=== PATIENT | female | born 1965 | race Hispanic/Latino ===

== ENCOUNTER 2016-11-06 23:24 | Observation (INO) | payer OTHER ==
[2016-11-06 23:31] VITALS: BP 138/88; RESP 18; TEMP 98
[2016-11-06] MEDS ORDERED: Sodium Chloride 0.9% 1,000 ML IV STA (23:38)
[2016-11-06] MEDS ORDERED: Multivitamin (MVI) 10 ML, Folic Acid 1 MG, Thiamine 100 MG in Dextrose 5%/0.45% NS 1,00... IV ONE (23:55)
[2016-11-07 00:46] LABS: BASO # 0.1 K/uL (0.0-0.2); BASO % 0.6 % (0.0-2.0); EOS % 0.5 % (0.0-4.0); HEMATOCRIT 37.3 % (34.0-47.0); LYMPH # 1.8 K/uL (1.0-4.3); MEAN CELL VOLUME 97.4 fl (81.0-99.0); MEAN CORPUSCULAR HEMOGLOBIN 31.7 pg (27.0-31.0); MEAN CORPUSCULAR HGB CONC 32.6 g/dL (33.0-37.0); MEAN PLATELET VOLUME 9.9 fl (7.2-11.7); MONO # 0.6 K/uL (0.0-0.8); MONO % 6.6 % (0.0-10.0); NEUT # 6.2 K/uL (1.8-7.0); NEUT % 71.3 % (50.0-75.0); RED CELL DISTRIBUTION WIDTH 14.1 % (11.5-14.5); WHITE BLOOD COUNT 8.7 K/uL (4.8-10.8)
[2016-11-07 01:04] LABS: ALB/GLOB RATIO 0.7 (1.0-2.1); ALKALINE PHOSPHATASE 98 U/L (38-126); ALT/SGPT 46 U/L (9-52); AST/SGOT 90 U/L (14-36); BILIRUBIN,TOTAL 0.8 mg/dl (0.2-1.3); BLOOD UREA NITROGEN 6 mg/dl (7-17); CALCIUM 8.7 mg/dL (8.4-10.2); CARBON DIOXIDE 23 mmol/L (22-30); CHLORIDE 107 mmol/L (98-107); GFR AFRICAN-AMERICAN > 60; GLUCOSE,RANDOM 147 mg/dL (65-105); POTASSIUM 3.9 MMOL/L (3.6-5.0); SODIUM 150 mmol/l (132-148)
[2016-11-07 01:22] LABS: ALCOHOL SERUM 319 mg/dl (0-10)
--- NOTE | 2016-11-07 02:45 | ED PDOC ---
HPI: Psych/Substance Abuse Time Seen by Provider: 11/06/16 23:27 Chief Complaint (Nursing): Anxiety Chief Complaint (Provider): intoxication, anxiety History Per: Patient History/Exam Limitations: no limitations Onset/Duration Of Symptoms: Hrs Current Symptoms Are (Timing): Still Present Additional Complaint(s): 51yo female with PMHx including alcohol abuse presents to the ED for evaluation of intoxication and anxiety. Patient states her is currently hospitalized at this facility in the ICU and is severely ill and has used alcohol due to extreme anxiety and stress because of 's condition. Patient was walking to this hospital in order to visit her when she was picked up by local EMS due to intoxicated state. Denies medical complaints except extreme anxiety and preoccupation with 's condition. No fever, cough, SOB, chest pain, SI, HI. Declines crisis services and denies drug use. 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 Admits to daily alcohol use. Past Medical History Reviewed: Historical Data, Nursing Documentation, Vital Signs Vital Signs: Last Vital Signs Temp 98.0 F 11/06/16 23:28 Pulse 150 H 11/06/16 23:28 Resp 18 11/06/16 23:28 BP 138/88 11/06/16 23:28 Pulse Ox 98 11/06/16 23:28 - Medical History Other PMH: alcohol abuse - Surgical History Surgical History: No Surg Hx - Family History Family History: States: No Known Family Hx - Social History Current smoker - smoking cessation education provided: No Alcohol: Other (daily) Drugs: Other (former heroin addict ) - Home Medications Home Medications: Ambulatory Orders Medication Instructions Recorded Naproxen 1 tab PO BID PRN #14 tab 02/29/16 oxyCODONE/Acetaminophen [Percocet 1 ea PO Q6 PRN #15 tab 02/29/16 5/325 mg Tab] - Allergies Allergies/Adverse Reactions: Allergies Allergy/AdvReac Type Severity Reaction Status Date / Time No Known Allergies Allergy Verified 11/06/16 23:28 Review of Systems ROS Statement: Except As Marked, All Systems Reviewed And Found Negative Constitutional: Negative for: Fever Cardiovascular: Negative for: Chest Pain Respiratory: Negative for: Cough, Shortness of Breath Psych: Positive for: Anxiety, Other (no HI ). Negative for: Suicidal ideation Physical Exam - Reviewed Nursing Documentation Reviewed: Yes Vital Signs Reviewed: Yes - Physical Exam Appears: Positive for: Well, No Acute Distress Head Exam: Positive for: ATRAUMATIC, NORMAL INSPECTION, NORMOCEPHALIC Skin: Positive for: Warm, Dry, Rash (petechial rash to BLE ) Eye Exam: Positive for: Normal appearance, EOMI, PERRL ENT: Positive for: Normal ENT Inspection Neck: Positive for: Normal, Painless ROM, Supple Cardiovascular/Chest: Positive for: Tachycardia. Negative for: Edema, Murmur Respiratory: Positive for: Normal Breath Sounds. Negative for: Wheezing, Respiratory Distress Gastrointestinal/Abdominal: Positive for: Normal Exam, Bowel Sounds, Soft. Negative for: Tenderness Back: Positive for: Normal Inspection. Negative for: L CVA Tenderness, R CVA Tenderness Extremity: Positive for: Normal ROM, Other (bruises noticed to arms and lower extremities b/l ). Negative for: Tenderness, Deformity Neurologic/Psych: Positive for: Alert, Oriented, Mood/Affect (anxious, tearful ) , Gait (unsteady ) - Laboratory Results Result Diagrams: 11/07/16 00:20 11/07/16 00:20 - ECG O2 Sat by Pulse Oximetry: 98 Pulse Ox Interpretation: Normal (RA) Medical Decision Making Medical Decision Makin: Impression: 51yo female w/ anxiety in setting of alcohol use and stress Plan: Labs EKG Ativan 2mg IVP, banana bag ED obs reassess 0600: Patient AAOx3 ambulating with steady gait and clear speech and stable for d/c. Dx: alcohol intoxication, stress and adjustment reaction stable Scribe Attestation: Documented by Joaquín Sanchez acting as a scribe for Jose Bryant MD. Provider Scribe Attestation: All medical record entries made by the Scribe were at my direction and personally dictated by me. I have reviewed the chart and agree that the record accurately reflects my personal performance of the history, physical exam, medical decision making, and the department course for this patient. I have also personally directed, reviewed, and agree with the discharge instructions and disposition. ED OBSERVATION Date of observation admission: 11/07/16 Time of observation admission: 02:35 - Observation admission statement Patient is being placed in observation because:: intoxication - Goals of Observation Goals of observation are:: pending clinical sobriety Disposition - Clinical Impression Clinical Impression: Stress and adjustment reaction, Alcohol intoxication - Patient ED Disposition Is Patient to be Admitted: No - Disposition Referrals: [facility] [Outside] [facility] [Outside] Disposition: Routine/Home Disposition Time: 02:35 Condition: STABLE Instructions: Stress (ED), Alcohol Use Disorder (ED)
[2016-11-07 06:09] VITALS: PULSE 105; O2SAT 94
--- NOTE | 2016-11-07 08:00 | CARD ---
APPROVED REPORT EKG Measurement Heart [id number] <Conclusion> Sinus tachycardia Left axis deviation Possible Anterior infarct, age undetermined Abnormal ECG
== END 2016-11-07 05:43 | disposition home or self-care (01) ==
LOC: H.ER 23:24 → H.EROBSV 11-07 02:35
PROVIDERS: ADMIT Emergency Medicine; ATTEND Emergency Medicine
DX: F10.129 Alcohol abuse with intoxication, unspecified (principal); Y90.8 Blood alcohol level of 240 mg/100 ml or more; F41.9 Anxiety disorder, unspecified; F43.20 Adjustment disorder, unspecified

== ENCOUNTER 2016-12-01 16:57 | Inpatient (IN) | payer OTHER ==
[2016-12-01] MEDS ORDERED: Sodium Chloride 0.9% 1,000 ML IV STA (18:35)
--- NOTE | 2016-12-01 19:01 | ED PDOC ---
Lower Extremity Pain/Injury Time Seen by Provider: 12/01/16 17:00 Chief Complaint (Nursing): Lower Extremity Problem/Injury Chief Complaint (Provider): Lower Extremity Problem/Injury History Per: Patient History/Exam Limitations: no limitations Onset/Duration Of Symptoms: Days Current Symptoms Are (Timing): Still Present Severity: Moderate Additional Complaint(s): Patient is a 51 year old female referred to ED by Mikey CHESTER for lower extremity swelling for a few days. Patient admits that she was alcoholic for 30 years, recently stopped drinking 2 weeks ago but has noticed this swelling that began in her feet move up to her knees. she also feels tremulous. Denies fever, vomiting, chest pain, palpations or SOB. Past Medical History Reviewed: Historical Data, Nursing Documentation, Vital Signs Vital Signs: Last Vital Signs Temp 98.4 F 12/01/16 17:30 Pulse 88 12/01/16 17:30 Resp 18 12/01/16 17:30 BP 133/92 H 12/01/16 17:30 Pulse Ox 99 12/01/16 17:30 - Medical History PMH: No Chronic Diseases - Surgical History Surgical History: No Surg Hx - Family History Family History: States: Unknown Family Hx - Social History Current smoker - smoking cessation education provided: No Alcohol: Other (quit) Drugs: Denies - Allergies Allergies/Adverse Reactions: Allergies Allergy/AdvReac Type Severity Reaction Status Date / Time No Known Allergies Allergy Verified 11/06/16 23:28 Review of Systems ROS Statement: Except As Marked, All Systems Reviewed And Found Negative Constitutional: Negative for: Fever, Chills Cardiovascular: Positive for: Edema. Negative for: Chest Pain, Palpitations, Light Headedness Respiratory: Negative for: Cough, Shortness of Breath Gastrointestinal: Negative for: Nausea, Vomiting Neurological: Positive for: Other (feels shaky). Negative for: Altered Mental Status, Headache, Dizziness Physical Exam - Reviewed Nursing Documentation Reviewed: Yes Vital Signs Reviewed: Yes - Physical Exam Appears: Positive for: Non-toxic, No Acute Distress Skin: Positive for: Normal Color, Warm Eye Exam: Positive for: EOMI, PERRL, Scleral icterus (bilateral) Neck: Positive for: Normal, Painless ROM Cardiovascular/Chest: Positive for: Regular Rate, Rhythm. Negative for: Murmur Respiratory: Positive for: Normal Breath Sounds. Negative for: Respiratory Distress Gastrointestinal/Abdominal: Positive for: Normal Exam (old bruising noted ). Negative for: Tenderness, Distended Back: Positive for: Normal Inspection Extremity: Positive for: Normal ROM, Pedal Edema (pitting bilaterally from knees to feet ). Negative for: Calf Tenderness Neurologic/Psych: Positive for: Alert, Oriented. Negative for: Motor/Sensory Deficits - Laboratory Results Result Diagrams: 12/01/16 20:57 12/01/16 20:57 - ECG O2 Sat by Pulse Oximetry: 99 (RA) Pulse Ox Interpretation: Normal Medical Decision Making Medical Decision Making: Time: 1829 Initial impression: jaundice, edema R/O liver disease and DVT Initial plan: -- CMP -- CBC -- NSF -- Urine culture -- U/A -- Duplex Time: 2144 Labs reviewed, slightly elevated bilirubin and slight jaundiced. Patient to be admitted to medicine components engineer Time: 2204 Given jaundice and possible alcohol withdrawal/tremors, patient will be given Ativan. Discussed case with medicine components engineer (Greg), who accepted the patient for admission. * Ativan 1mg IVP * Admit to hospital 2204 Scribe Attestation: Documented by Cathryn Tubbs acting as a scribe for Gema Shin MD MD Scribe Attestation: All medical record entries made by the Scribe were at my direction and personally dictated by me. I have reviewed the chart and agree that the record accurately reflects my personal performance of the history, physical exam, medical decision making, and the department course for this patient. I have also personally directed, reviewed, and agree with the discharge instructions and disposition. Disposition - Clinical Impression Clinical Impression: Alcohol withdrawal, Liver failure - Patient ED Disposition Is Patient to be Admitted: Yes - Disposition Disposition Time: 20:00 Condition: STABLE
[2016-12-01 19:56] LABS: RBC URINE 10 /hpf (0-3); URINE BACTERIA FEW (<OCC); URINE BILIRUBIN MODERATE (NEGATIVE); URINE BLOOD NEGATIVE (NEGATIVE); URINE COLOR AMBER (YELLOW); URINE GLUCOSE (UA) NEG (Normal); URINE KETONE TRACE mg/dL (NEGATIVE); URINE LEUKOCYTE ESTERASE TRACE Leu/uL (Negative); URINE PROTEIN 100 mg/dL (NEGATIVE); WBC URINE 18 /hpf (0-5)
--- NOTE | 2016-12-01 20:48 | US ---
EXAM: US Duplex Bilateral Lower Extremity Veins CLINICAL HISTORY: 51 years old, female; Signs and symptoms; Swelling of limb; Lower extremity, bilateral; Additional info: Leg swelling TECHNIQUE: Real-time ultrasound scan of the veins of the bilateral lower extremities with color Doppler flow, spectral waveform analysis and compression. EXAM DATE/TIME: 12/01/2016 6:34 PM COMPARISON: No relevant prior studies available. FINDINGS: Normal-appearing compressibility, flow and augmentation response are seen within the common femoral, femoral and popliteal veins bilaterally. Flow is seen in the posterior tibial veins, in the calves bilaterally. There is no evidence of deep venous thrombosis. IMPRESSION: No evidence of deep venous thrombosis in either leg.
[2016-12-01 21:11] LABS: BASO % 0.3 % (0.0-2.0); EOS % 0.9 % (0.0-4.0); HEMATOCRIT 34.9 % (34.0-47.0); LYMPH # 0.9 K/uL (1.0-4.3); MEAN CELL VOLUME 96.5 fl (81.0-99.0); MEAN CORPUSCULAR HEMOGLOBIN 32.7 pg (27.0-31.0); MEAN CORPUSCULAR HGB CONC 33.9 g/dL (33.0-37.0); MEAN PLATELET VOLUME 9.6 fl (7.2-11.7); MONO # 0.7 K/uL (0.0-0.8); MONO % 13.7 % (0.0-10.0); NEUT # 3.2 K/uL (1.8-7.0); NEUT % 66.1 % (50.0-75.0); NRBC % 0.1 % (0.0-0.0); RED CELL DISTRIBUTION WIDTH 14.7 % (11.5-14.5); WHITE BLOOD COUNT 4.9 K/uL (4.8-10.8)
[2016-12-01 21:22] LABS: ALB/GLOB RATIO 0.6 (1.0-2.1); ALKALINE PHOSPHATASE 76 U/L (38-126); ALT/SGPT 32 U/L (9-52); AST/SGOT 123 U/L (14-36); BILIRUBIN,TOTAL 2.3 mg/dl (0.2-1.3); BLOOD UREA NITROGEN 11 mg/dl (7-17); CALCIUM 9.1 mg/dL (8.4-10.2); CARBON DIOXIDE 26 mmol/L (22-30); CHLORIDE 103 mmol/L (98-107); GFR AFRICAN-AMERICAN > 60; GLUCOSE,RANDOM 108 mg/dL (65-105); POTASSIUM 3.6 MMOL/L (3.6-5.0); SODIUM 143 mmol/l (132-148); TOTAL PROTEIN 8.3 G/DL (6.3-8.2)
[2016-12-01 23:03] LABS: PARTIAL THROMBOPLASTIN TIME 31.5 SECONDS (23.3-32.5)
[2016-12-02] MEDS ORDERED: Dextrose 5%/0.45% NS 1,000 ML IV SCH (06:15)
[2016-12-02 07:57] LABS: BLOOD UREA NITROGEN 9 mg/dl (7-17); CARBON DIOXIDE 24 mmol/L (22-30); CHLORIDE 108 mmol/L (98-107); GFR AFRICAN-AMERICAN > 60; GLUCOSE,RANDOM 101 mg/dL (65-105); POTASSIUM 3.6 MMOL/L (3.6-5.0); SODIUM 143 mmol/l (132-148)
[2016-12-02 08:04] LABS: HEMATOCRIT 31.6 % (34.0-47.0); MEAN CELL VOLUME 98.3 fl (81.0-99.0); MEAN CORPUSCULAR HEMOGLOBIN 31.7 pg (27.0-31.0); MEAN CORPUSCULAR HGB CONC 32.2 g/dL (33.0-37.0); WHITE BLOOD COUNT 3.4 K/uL (4.8-10.8)
--- NOTE | 2016-12-02 08:12 | CP.PCM.CON ---
<Jo Malone - Last Filed: 12/02/16 09:50> History of Present Illness - History of Present Illness History of Present Illness: Gastroenterology Fellow/PGY4 Consult Note 51 year old female with history of Alcohol Abuse presenting with leg swelling. She describes new onset of bilateral foot swelling for the last two weeks leading to her stopping her daily alcohol intake. Notes having mild abdominal distension for the last two weeks as well. She denies chest pain, shortness of breath, nausea, vomiting, hematemesis, abdominal pain, diarrhea, constipation, melena, hematochezia, fever, chills, sweats, confusion, yellowing of skin, falls , loss of appetite, or unintentional weight loss. She admits to drinking a 6- pack of beer and 1/2 pint of liquor daily for the last 10 years . Does note periods of sobriety over the years with longest being 4 months. She has attended AA meeting but has never felt the need for rehab or detox. Denies IV drug abuse. Tattoos were placed in a shop with sterile procedure per patient. Does not have an established PCP. No prior EGD or colonoscopy. Family: father- Glioblastoma, paternal: uncle-lung cancer, grandfather-liver cancer; maternal side' breast cancer- unknown family member Social: previous social tobacco use- quit 10 years ago; previous heroin addict- quit 15 years ago; daily 6 pck of beer and 1/2 pint of liquor Surgery-none Review of Systems - Review of Systems Review of Systems: A 12-point review of systems negative except for as above Past Patient History - Past Social History Smoking Status: Former Smoker - CARDIAC Hx Cardiac Disorders: No - PULMONARY Hx Respiratory Disorders: No - NEUROLOGICAL Hx Neurological Disorder: No - HEENT Hx HEENT Problems: No - RENAL Hx Chronic Kidney Disease: No - ENDOCRINE/METABOLIC Hx Endocrine Disorders: No - HEMATOLOGICAL/ONCOLOGICAL Hx Blood Disorders: No - INTEGUMENTARY Hx Dermatological Problems: No - MUSCULOSKELETAL/RHEUMATOLOGICAL Hx Musculoskeletal Disorders: No - GENITOURINARY/GYNECOLOGICAL Hx Genitourinary Disorders: No - PSYCHIATRIC Hx Psychophysiologic Disorder: No - SURGICAL HISTORY Hx Surgeries: Yes Other/Comment: rhinoplasty - ANESTHESIA Hx Anesthesia: Yes Hx Anesthesia Reactions: No Hx Malignant Hyperthermia: No Meds Allergies/Adverse Reactions: Allergies Allergy/AdvReac Type Severity Reaction Status Date / Time No Known Allergies Allergy Verified 11/06/16 23:28 - Medications Medications: Current Medications Folic Acid (Folic Acid) 1 mg PO DAILY COUNT INCLUDES THE [facility] Furosemide (Lasix) 40 mg IV DAILY COUNT INCLUDES THE [facility] Dextrose/Sodium Chloride (Dextrose 5%/0.45% Ns 1000 Ml) 1,000 mls @ 40 mls/hr IV .Q24H SILVERIO Stop: 12/03/16 06:16 Lorazepam (Ativan) 1 mg PO BID SILVERIO Thiamine HCl (Vitamin B1 Tab) 100 mg PO DAILY SILVERIO Physical Exam - Constitutional Appears: Non-toxic, No Acute Distress - Head Exam Head Exam: ATRAUMATIC, NORMOCEPHALIC - Eye Exam Eye Exam: EOMI, PERRL, Scleral icterus Pupil Exam: PERRL. absent: Miosis, Mydriatic - ENT Exam ENT Exam: Mucous Membranes Moist, Normal Oropharynx - Neck Exam Neck exam: Positive for: Full Rom, Normal Inspection - Respiratory Exam Respiratory Exam: Clear to Auscultation Bilateral. absent: Rales, Rhonchi, Wheezes - Cardiovascular Exam Cardiovascular Exam: RRR, +S1, +S2. absent: Gallop, Rubs - GI/Abdominal Exam GI & Abdominal Exam: Normal Bowel Sounds, Organomegaly. absent: Distended, Firm , Guarding, Rebound, Rigid, Tenderness Additional comments: hepatomegaly, bruise abdominal cavity- unknown cause - Extremities Exam Extremities exam: Positive for: full ROM Additional comments: 2+ B/L LE pitting edema - Neurological Exam Neurological exam: Alert, Oriented x3 - Psychiatric Exam Psychiatric exam: Normal Affect, Normal Mood - Skin Skin Exam: Dry, Intact, Normal Color, Warm Results - Vital Signs Recent Vital Signs: Last Vital Signs Temp 98.3 F 12/02/16 00:40 Pulse 93 H 12/02/16 00:40 Resp 20 12/02/16 00:40 BP 118/77 12/02/16 00:40 Pulse Ox 99 12/02/16 00:40 - Labs Result Diagrams: 12/02/16 07:16 12/02/16 07:16 Labs: Laboratory Results - last 24 hr 12/01/16 12/01/16 12/02/16 22:30 22:31 07:16 PT 10.2 INR 0.98 APTT 31.5 Sodium 143 Potassium 3.6 Chloride 108 H Carbon Dioxide 24 Anion Gap 15 BUN 9 Creatinine 0.4 L Est GFR ( Amer) > 60 Est GFR (Non-Af Amer) > 60 Random Glucose 101 Calcium 8.0 L Ammonia 15 Alcohol, Quantitative < 10 Assessment & Plan - Assessment and Plan (Free Text) Assessment: 51 year old female with history of Alcohol Abuse presenting with leg swelling. Laboratory findings showing thrombocytopenia, anemia, hypoalbuminemia, hyperbilirubinemia, and elevated transaminase. No prior EGD or colonoscopy. Plan: >concern for portal hypertension and liver cirrhosis >pending Ultrasound for further evaluation >if ascites present-will require diagnostic and therapeutic paracentesis with fluid analysis -albumin, total protein, cell count, culture >ordered liver profile, direct bilirubin, INR, hepatitis panel >daily LFTs, INR >pancytopenia likely in setting of bone marrow suppression >strict I&Os >alcohol withdrawal-on Ativan >low salt diet >further recommendations based on clinical course <Colt Nguyễn MD - Last Filed: 12/02/16 11:44> Meds - Medications Medications: Current Medications Folic Acid (Folic Acid) 1 mg PO DAILY COUNT INCLUDES THE [facility] Last Admin: 12/02/16 08:59 Dose: 1 mg Furosemide (Lasix) 40 mg IV DAILY COUNT INCLUDES THE [facility] Last Admin: 12/02/16 08:59 Dose: 40 mg Lorazepam (Ativan) 1 mg PO BID COUNT INCLUDES THE [facility] Last Admin: 12/02/16 08:59 Dose: 1 mg Thiamine HCl (Vitamin B1 Tab) 100 mg PO DAILY COUNT INCLUDES THE [facility] Last Admin: 12/02/16 08:53 Dose: 100 mg Results - Vital Signs Recent Vital Signs: Last Vital Signs Temp 98.8 F 12/02/16 08:21 Pulse 77 12/02/16 08:21 Resp 18 12/02/16 08:21 BP 133/83 12/02/16 08:59 Pulse Ox 98 12/02/16 08:21 - Labs Result Diagrams: 12/02/16 07:16 12/02/16 07:16 Labs: Laboratory Results - last 24 hr 12/01/16 12/01/16 12/02/16 22:30 22:31 07:16 WBC 3.4 L RBC 3.21 L Hgb 10.2 L Hct 31.6 L MCV 98.3 MCH 31.7 H MCHC 32.2 L RDW 15.0 H Plt Count 55 L PT 10.2 INR 0.98 APTT 31.5 Sodium 143 Potassium 3.6 Chloride 108 H Carbon Dioxide 24 Anion Gap 15 BUN 9 Creatinine 0.4 L Est GFR ( Amer) > 60 Est GFR (Non-Af Amer) > 60 Random Glucose 101 Calcium 8.0 L Total Bilirubin Direct Bilirubin AST ALT Alkaline Phosphatase Ammonia 15 Total Protein Albumin Globulin Albumin/Globulin Ratio Alcohol, Quantitative < 10 12/02/16 12/02/16 07:46 09:34 WBC RBC Hgb Hct MCV MCH MCHC RDW Plt Count PT 14.4 H INR 1.38 H APTT Sodium Potassium Chloride Carbon Dioxide Anion Gap BUN Creatinine Est GFR ( Amer) Est GFR (Non-Af Amer) Random Glucose Calcium Total Bilirubin 1.4 H Direct Bilirubin 0.7 H AST 103 H ALT 37 Alkaline Phosphatase 89 Ammonia Total Protein 7.0 Albumin 2.6 L Globulin 4.3 H Albumin/Globulin Ratio 0.6 L Alcohol, Quantitative Attending/Attestation - Attestation I have personally seen and examined this patient.: Yes I have fully participated in the care of the patient.: Yes I have reviewed all pertinent clinical information: Yes Notes (Text): 12/02/16 11:38 Patient seen and examined with Gi fellow at bedside this am. This is a 51 year old female with history of Alcohol Abuse and dependance admitted with decompensated liver disease in setting of alcoholic cirrhosis. As per patient last drink was week ago. She denies previous hospitalizations for the same. Her was admitted last month in MICU for a month for the same reason. She continues to drink. Her decompensated disease is with ascites, thrombocytopenia and coagulopathy. She has had no endoscopic evaluation for variceal screening. She should get ascitic tap for diagnostic purposes to rule out SBP and calculate SAAG. Alcohol cessation reinforced. Needs close outpatient follow up. Daily MELD labs. discontinue IVF as patient ahs LE edema and ascites. Will start lasix 40 mg po daily and aldactone 100 mg po daily. Strict I and O. Triple phase CT scan with IV contrast to rule out HCC. Discontinue PPI as patient has ascites and is high risk of abdominal infections
[2016-12-02 09:02] LABS: ALB/GLOB RATIO 0.6 (1.0-2.1); BILIRUBIN,TOTAL 1.4 mg/dl (0.2-1.3)
--- NOTE | 2016-12-02 09:20 | US ---
HISTORY: Alcohol withdrawal, liver failure. COMPARISON: None. TECHNIQUE: Sonographic evaluation of the abdomen. FINDINGS: LIVER: Measures 20.6 cm. Nodular contour to the liver, variable echogenicity of the liver parenchyma. No mass. No intrahepatic bile duct dilatation. GALLBLADDER: Unremarkable. No gallstones. COMMON BILE DUCT: Measures 6.4 mm. No stones. No dilatation. PANCREAS: Unremarkable as visualized. No mass. No ductal dilatation. RIGHT KIDNEY: Measures 11.4 x 4.9cm. Normal echogenicity. No calculus, mass, or hydronephrosis. LEFT KIDNEY: Measures 11.1 x 5.8 is at a good thing caps if andcm. Normal echogenicity. No calculus, mass, or hydronephrosis. SPLEEN: Normal in size and contour. No mass. AORTA: No aneurysmal dilatation. IVC: Unremarkable. OTHER FINDINGS: Incompletely visualize right upper quadrant ascites. IMPRESSION: Cirrhotic liver. Ascites. Otherwise no acute/ significant findings.
--- NOTE | 2016-12-02 09:57 | HP ---
The patient is a 51-year-old female who presents to the Emergency Room with swelling of lower extremi ties and tremors of hands for the past several days prior to presentation. She indicates that sympto ms really started about 2 weeks ago when her abdomen became slightly swollen and then the legs showed some swelling. She is a chronic alcoholic and indicates she stopped drinking about a week and a james f ago because her got sick and was admitted to the hospital for alcohol-related problems. Jaciel grimes drinks a half pint of liquor daily and beer heavily. PAST MEDICAL HISTORY: Unremarkable. FAMILY HISTORY: Remarkable for father who had glioblastoma and an uncle who had lung cancer. SOCIAL HISTORY: She drinks heavily. Does not smoke. Indicates she quit smoking about 20 years ago and also quit using heroin about 15 years ago. She lives at home with her . REVIEW OF SYSTEMS: Remarkable for swelling of legs and abdominal distention. PHYSICAL EXAMINATION: GENERAL: The patient is alert, oriented, appears to be comfortable at present. VITAL SIGNS: Blood pressure on admission was 133/92 with a pulse of 88, respirations 18. She is afe brile. O2 sat 99% on room air. SKIN: Shows fair turgor with some jaundice. EYES: Scleral icterus. NECK: JVP flat. MOUTH: Shows fair hygiene. LUNGS: Clear. HEART: Regular. No murmurs or gallop. BREASTS: Normal. ABDOMEN: Distended with some ecchymosis of the abdominal wall. No caput medusae. No organomegaly a ppreciated. GENITALIA: Normal. EXTREMITIES: There is 2+ pitting pedal edema bilaterally. LABORATORY DATA: Remarkable for WBC of 3.4, hemoglobin 10.2, platelet count 55,000. Sodium 143, pot assium 3.6, BUN of 9, creatinine 0.4, calcium 8.0. AST 123, ALT 32, albumin 3.2, protein 8.3. Ultra sound of abdomen done, results pending. Chest x-ray results pending. IMPRESSION: History of chronic alcoholism with what appears to be cirrhosis of the liver resulting i n a pitting edema and pancytopenia, alcohol withdrawal syndrome. PLAN: Gastroenterology evaluation, IV diuretics to help decrease possible ascites and pedal edema. Monitor for alcohol withdrawal, delirium tremens precautions, seizure precautions. Further therapy w ill depend on findings. We will also give Ativan b.i.d. to prevent full blown alcohol withdrawal and delirium tremens. Terry Garza MD cc: 62 TT: 12/02/2016 09:56:01 en
--- NOTE | 2016-12-02 10:38 | RAD ---
HISTORY: leg swelling COMPARISON: No prior. FINDINGS: LUNGS: The lungs are clear. PLEURA: No significant pleural effusion identified, no pneumothorax apparent. CARDIOVASCULAR: Normal. OSSEOUS STRUCTURES: No significant abnormalities. VISUALIZED UPPER ABDOMEN: Normal. OTHER FINDINGS: None. IMPRESSION: No active pulmonary disease.
[2016-12-03 07:38] LABS: BASO % 0.7 % (0.0-2.0); EOS # 0.1 K/uL (0.0-0.7); EOS % 2.2 % (0.0-4.0); HEMATOCRIT 33.1 % (34.0-47.0); LYMPH % 24.9 % (20.0-40.0); MEAN CELL VOLUME 96.4 fl (81.0-99.0); MEAN CORPUSCULAR HEMOGLOBIN 31.9 pg (27.0-31.0); MEAN CORPUSCULAR HGB CONC 33.1 g/dL (33.0-37.0); MEAN PLATELET VOLUME 9.5 fl (7.2-11.7); MONO # 0.7 K/uL (0.0-0.8); MONO % 18.8 % (0.0-10.0); NEUT # 2.1 K/uL (1.8-7.0); NEUT % 53.4 % (50.0-75.0); NRBC % 0.3 % (0.0-0.0); WHITE BLOOD COUNT 3.9 K/uL (4.8-10.8)
[2016-12-03 08:12] LABS: ALB/GLOB RATIO 0.6 (1.0-2.1); ALKALINE PHOSPHATASE 77 U/L (38-126); ALT/SGPT 38 U/L (9-52); AST/SGOT 82 U/L (14-36); BILIRUBIN,TOTAL 1.2 mg/dl (0.2-1.3); BLOOD UREA NITROGEN 8 mg/dl (7-17); CALCIUM 8.3 mg/dL (8.4-10.2); CARBON DIOXIDE 24 mmol/L (22-30); CHLORIDE 107 mmol/L (98-107); GFR AFRICAN-AMERICAN > 60; GLUCOSE,RANDOM 103 mg/dL (65-105); POTASSIUM 3.7 MMOL/L (3.6-5.0); SODIUM 143 mmol/l (132-148); TOTAL PROTEIN 7.2 G/DL (6.3-8.2)
--- NOTE | 2016-12-03 10:43 | CP.PCM.PN ---
Subjective - Date & Time of Evaluation Date of Evaluation: 12/03/16 Time of Evaluation: 10:44 - Subjective Subjective: FEELS BETTER LESS TREMORS OF EXTREMITIES NO ABDOMINAL PAINS Objective - Vital Signs/Intake and Output Vital Signs (last 24 hours): Temp Pulse Resp BP Pulse Ox 98.4 F 60 18 129/65 96 12/03/16 08:13 12/03/16 08:13 12/03/16 08:13 12/03/16 08:23 12/03/16 08:13 - Medications Medications: Current Medications Folic Acid (Folic Acid) 1 mg PO DAILY [facility] Last Admin: 12/03/16 08:23 Dose: 1 mg Furosemide (Lasix) 40 mg IV DAILY [facility] Last Admin: 12/03/16 08:23 Dose: 40 mg Lorazepam (Ativan) 1 mg PO BID [facility] Last Admin: 12/03/16 08:23 Dose: 1 mg Thiamine HCl (Vitamin B1 Tab) 100 mg PO DAILY [facility] Last Admin: 12/03/16 08:23 Dose: 100 mg - Labs Labs: 12/03/16 05:30 12/03/16 05:30 PT 14.4 SECONDS (9.6-11.2) H 12/02/16 09:34 INR 1.38 (0.92-1.08) H 12/02/16 09:34 APTT 31.5 SECONDS (23.3-32.5) 12/01/16 22:30 - Constitutional Appears: No Acute Distress - Head Exam Head Exam: ATRAUMATIC, NORMAL INSPECTION, NORMOCEPHALIC - Eye Exam Eye Exam: EOMI, Normal appearance, PERRL, Scleral icterus Pupil Exam: NORMAL ACCOMODATION, PERRL - ENT Exam ENT Exam: Mucous Membranes Moist, Normal Exam - Neck Exam Neck Exam: Full ROM, Normal Inspection. absent: Lymphadenopathy - Respiratory Exam Respiratory Exam: Clear to Ausculation Bilateral, NORMAL BREATHING PATTERN - Cardiovascular Exam Cardiovascular Exam: REGULAR RHYTHM, +S1, +S2. absent: Murmur - GI/Abdominal Exam GI & Abdominal Exam: Distended, Soft, Normal Bowel Sounds. absent: Tenderness - Rectal Exam Rectal Exam: NORMAL INSPECTION - Extremities Exam Extremities Exam: Full ROM, Normal Capillary Refill, Normal Inspection. absent : Joint Swelling, Pedal Edema - Back Exam Back Exam: NORMAL INSPECTION - Neurological Exam Neurological Exam: Alert, Awake, CN II-XII Intact, Normal Gait, Oriented x3 - Psychiatric Exam Psychiatric exam: Normal Affect, Normal Mood - Skin Skin Exam: Dry, Intact, Normal Color, Warm Assessment and Plan - Assessment and Plan (Free Text) Assessment: CIRRHOSIS OF THE LIVER ALCOHOL WITHDRAWAL SYNDROME HEP C INFECTION CHRONIC ANEMIA ASCITES Plan: CONTINUE PRESENT RX TAPER ATIVAN D/C IN AM IF STABLE
--- NOTE | 2016-12-03 11:11 | CP.PCM.PN ---
Subjective - Date & Time of Evaluation Date of Evaluation: 12/03/16 Time of Evaluation: 11:07 - Subjective Subjective: RFV: CIrrhosis S: No acute events. No nausea or vomiting. Denies abdominal pain or distention. LE edema is improving with diuresis. No fever or bleeding. Objective - Vital Signs/Intake and Output Vital Signs (last 24 hours): Temp Pulse Resp BP Pulse Ox 98.4 F 60 18 129/65 96 12/03/16 08:13 12/03/16 08:13 12/03/16 08:13 12/03/16 08:23 12/03/16 08:13 - Medications Medications: Current Medications Folic Acid (Folic Acid) 1 mg PO DAILY [facility] Last Admin: 12/03/16 08:23 Dose: 1 mg Furosemide (Lasix) 40 mg IV DAILY [facility] Last Admin: 12/03/16 08:23 Dose: 40 mg Lorazepam (Ativan) 0.5 mg PO BID [facility] Thiamine HCl (Vitamin B1 Tab) 100 mg PO DAILY [facility] Last Admin: 12/03/16 08:23 Dose: 100 mg - Labs Labs: 12/03/16 05:30 12/03/16 05:30 PT 14.4 SECONDS (9.6-11.2) H 12/02/16 09:34 INR 1.38 (0.92-1.08) H 12/02/16 09:34 APTT 31.5 SECONDS (23.3-32.5) 12/01/16 22:30 - Constitutional Appears: Non-toxic, No Acute Distress - Head Exam Head Exam: ATRAUMATIC, NORMOCEPHALIC - Eye Exam Eye Exam: Normal appearance. absent: Scleral icterus - Respiratory Exam Respiratory Exam: Clear to Ausculation Bilateral, NORMAL BREATHING PATTERN - Cardiovascular Exam Cardiovascular Exam: +S1, +S2 - GI/Abdominal Exam GI & Abdominal Exam: Distended, Soft. absent: Tenderness - Extremities Exam Extremities Exam: Pedal Edema - Neurological Exam Neurological Exam: Alert, Oriented x3 Assessment and Plan - Assessment and Plan (Free Text) Assessment: 51 year old female with history of etoh abuse admitted with edema and ascites. 1. Alcoholic cirrhosis 2. Ascites Plan: -improved with diuretics -recommend low sodium diet -needs cirrhosis workup including triple phase CT, paracentesis, and egd/colon -however, this can also be pursued on an outpatient basis at this point she is clincially stable -importance of complete alcohol abstience and outpatient follow up was stressed -continue lasix 40 mg daily and aldactone 100 mg daily
[2016-12-03 21:00] VITALS: O2SAT 97
[2016-12-04 07:54] VITALS: BP 126/79; PULSE 69; RESP 20; TEMP 98.6
--- NOTE | 2016-12-04 11:08 | CP.PCM.DIS ---
Provider - Provider Date of Admission: 12/01/16 22:05 Attending physician: Terry Garza MD Time Spent in preparation of Discharge (in minutes): 30 Diagnosis - Discharge Diagnosis (1) Alcohol withdrawal Status: Acute (2) Liver failure Status: Acute (3) Cirrhosis of liver Status: Acute (4) Ascites Status: Acute (5) Pedal edema Status: Acute Hospital Course - Lab Results Lab Results: Most Recent Lab Values WBC 3.9 K/uL (4.8-10.8) L 12/03/16 05:30 RBC 3.43 Mil/uL (3.80-5.20) L 12/03/16 05:30 Hgb 11.0 g/dL (12.0-16.0) L 12/03/16 05:30 Hct 33.1 % (34.0-47.0) L 12/03/16 05:30 MCV 96.4 fl (81.0-99.0) 12/03/16 05:30 MCH 31.9 pg (27.0-31.0) H 12/03/16 05:30 MCHC 33.1 g/dL (33.0-37.0) 12/03/16 05:30 RDW 15.0 % (11.5-14.5) H 12/03/16 05:30 Plt Count 65 K/uL (130-400) L 12/03/16 05:30 MPV 9.5 fl (7.2-11.7) 12/03/16 05:30 Neut % (Auto) 53.4 % (50.0-75.0) 12/03/16 05:30 Lymph % (Auto) 24.9 % (20.0-40.0) 12/03/16 05:30 [place] % (Auto) 18.8 % (0.0-10.0) H 12/03/16 05:30 Eos % (Auto) 2.2 % (0.0-4.0) 12/03/16 05:30 Baso % (Auto) 0.7 % (0.0-2.0) 12/03/16 05:30 Neut # 2.1 K/uL (1.8-7.0) 12/03/16 05:30 Lymph # 1.0 K/uL (1.0-4.3) 12/03/16 05:30 [place] # 0.7 K/uL (0.0-0.8) 12/03/16 05:30 Eos # 0.1 K/uL (0.0-0.7) 12/03/16 05:30 Baso # 0.0 K/uL (0.0-0.2) 12/03/16 05:30 PT 14.4 SECONDS (9.6-11.2) H 12/02/16 09:34 INR 1.38 (0.92-1.08) H 12/02/16 09:34 APTT 31.5 SECONDS (23.3-32.5) 12/01/16 22:30 Sodium 143 mmol/l (132-148) 12/03/16 05:30 Potassium 3.7 MMOL/L (3.6-5.0) 12/03/16 05:30 Chloride 107 mmol/L (98-107) 12/03/16 05:30 Carbon Dioxide 24 mmol/L (22-30) 12/03/16 05:30 Anion Gap 16 (10-20) 12/03/16 05:30 BUN 8 mg/dl (7-17) 12/03/16 05:30 Creatinine 0.5 mg/dL (0.7-1.2) L 12/03/16 05:30 Est GFR ( Amer) > 60 12/03/16 05:30 Est GFR (Non-Af Amer) > 60 12/03/16 05:30 Random Glucose 103 mg/dL (65-105) 12/03/16 05:30 Calcium 8.3 mg/dL (8.4-10.2) L 12/03/16 05:30 Total Bilirubin 1.2 mg/dl (0.2-1.3) 12/03/16 05:30 Direct Bilirubin 0.7 mg/ml (0.0-0.4) H 12/02/16 07:46 AST 82 U/L (14-36) H D 12/03/16 05:30 ALT 38 U/L (9-52) 12/03/16 05:30 Alkaline Phosphatase 77 U/L (38-126) 12/03/16 05:30 Ammonia 15 umo/L (11-51) 12/02/16 07:16 Total Protein 7.2 G/DL (6.3-8.2) 12/03/16 05:30 Albumin 2.7 g/dL (3.5-5.0) L 12/03/16 05:30 Globulin 4.5 gm/dL (2.2-3.9) H 12/03/16 05:30 Albumin/Globulin Ratio 0.6 (1.0-2.1) L 12/03/16 05:30 Urine Color Lisa (YELLOW) 12/01/16 19:37 Urine Clarity Slighty-cloudy (Clear) 12/01/16 19:37 Urine pH 5.0 (5.0-8.0) 12/01/16 19:37 Ur Specific [place] 1.039 (1.003-1.030) H 12/01/16 19:37 Urine Protein 100 mg/dL (NEGATIVE) 12/01/16 19:37 Urine Glucose (UA) Neg mg/dL (Normal) 12/01/16 19:37 Urine Ketones Trace mg/dL (NEGATIVE) 12/01/16 19:37 Urine Blood Negative (NEGATIVE) 12/01/16 19:37 Urine Nitrate Negative (NEGATIVE) 12/01/16 19:37 Urine Bilirubin Moderate (NEGATIVE) 12/01/16 19:37 Urine Urobilinogen 2.0 mg/dL (0.2-1.0) H 12/01/16 19:37 Ur Leukocyte Esterase Trace [place]/uL (Negative) 12/01/16 19:37 Urine RBC (Auto) 10 /hpf (0-3) H 12/01/16 19:37 Urine Microscopic WBC 18 /hpf (0-5) H 12/01/16 19:37 Ur Squamous Epith Cells 14 /hpf (0-5) H 12/01/16 19:37 Urine Bacteria Few (<OCC) H 12/01/16 19:37 Hyaline Casts 6-10 /hpf (0-2) H 12/01/16 19:37 Alcohol, Quantitative < 10 mg/dl (0-10) 12/01/16 22:31 Hepatitis A IgM Ab Negative (NEGATIVE) 12/02/16 12:03 Hep Bs Antigen Negative (NEGATIVE) 12/02/16 12:03 Hep B Core IgM Ab Negative (NEGATIVE) 12/02/16 12:03 Hepatitis C Antibody Reactive (NEGATIVE) H 12/02/16 12:03 - Hospital Course Hospital Course: CLINICALLY IMPROVED TREMORS OF EXTREMITIES RESOLVED NO HALLUCINATIONS PEDAL EDEMA RESOLVED Discharge Exam - Head Exam Head Exam: ATRAUMATIC, NORMOCEPHALIC - Eye Exam Eye Exam: EOMI, Normal appearance, PERRL Pupil Exam: NORMAL ACCOMODATION, PERRL - GI/Abdominal Exam GI & Abdominal Exam: Distended, Normal Bowel Sounds - Rectal Exam Rectal Exam: NORMAL INSPECTION - Neurological Exam Neurological exam: Alert, CN II-XII Intact, Normal Gait, Oriented x3, Reflexes Normal - Psychiatric Exam Psychiatric exam: Normal Affect, Normal Mood - Skin Skin Exam: Dry, Intact, Normal Color, Warm Discharge Plan - Follow Up Plan Condition: STABLE Disposition: HOME/ ROUTINE Patient education suggested?: Yes Instructions: Alcohol Intoxication (DC), Abuse of Alcohol (DC) Additional Instructions: DISCHARGE HOME TODAY ALCOHOL ABSTINENCE Referrals: Gopi CHESTER,MD [place]t [Medical Doctor] - Terry Garza MD [Staff Provider] -
--- NOTE | 2016-12-04 12:11 | CP.PCM.PN ---
Subjective - Date & Time of Evaluation Date of Evaluation: 12/04/16 Time of Evaluation: 12:10 - Subjective Subjective: RFV: Cirrhosis S: No acute events. Tolerating diet. No bleeding. Feels better. Objective - Vital Signs/Intake and Output Vital Signs (last 24 hours): Temp Pulse Resp BP Pulse Ox 98.6 F 69 20 126/79 97 12/04/16 07:54 12/04/16 07:54 12/04/16 07:54 12/04/16 09:47 12/04/16 07:54 - Medications Medications: Current Medications Folic Acid (Folic Acid) 1 mg PO DAILY [facility] Last Admin: 12/04/16 09:44 Dose: 1 mg Furosemide (Lasix) 40 mg IV DAILY [facility] Last Admin: 12/04/16 09:47 Dose: 40 mg Lorazepam (Ativan) 0.5 mg PO BID [facility] Last Admin: 12/04/16 09:44 Dose: 0.5 mg Spironolactone (Aldactone) 100 mg PO DAILY [facility] Last Admin: 12/04/16 09:44 Dose: 100 mg Thiamine HCl (Vitamin B1 Tab) 100 mg PO DAILY [facility] Last Admin: 12/04/16 09:44 Dose: 100 mg - Labs Labs: 12/03/16 05:30 12/03/16 05:30 PT 14.4 SECONDS (9.6-11.2) H 12/02/16 09:34 INR 1.38 (0.92-1.08) H 12/02/16 09:34 APTT 31.5 SECONDS (23.3-32.5) 12/01/16 22:30 - Constitutional Appears: Well, No Acute Distress - Head Exam Head Exam: ATRAUMATIC, NORMOCEPHALIC - Eye Exam Eye Exam: Normal appearance. absent: Scleral icterus - ENT Exam ENT Exam: Mucous Membranes Moist - Respiratory Exam Respiratory Exam: NORMAL BREATHING PATTERN. absent: Wheezes, Respiratory Distress - Cardiovascular Exam Cardiovascular Exam: +S1, +S2 - GI/Abdominal Exam GI & Abdominal Exam: Soft. absent: Tenderness - Neurological Exam Neurological Exam: Alert, Oriented x3 Assessment and Plan - Assessment and Plan (Free Text) Assessment: 51 year old female with history of etoh abuse admitted with edema and ascites. 1. Alcoholic cirrhosis 2. Ascites Plan: -improved with diuretics -recommend low sodium diet -needs cirrhosis workup including triple phase CT, paracentesis, and egd/colon -however, this can also be pursued on an outpatient basis at this point she is clincially stable -importance of complete alcohol abstience and outpatient follow up was stressed -continue lasix 40 mg daily and aldactone 100 mg daily -ok to discharge
== END 2016-12-04 14:25 | disposition home or self-care (01) | DRG 896 ==
LOC: H.ER 16:57 → H.ERHOLD 21:42 → OBSVTOIN 22:05 → H.MEDSURG1 12-02 00:33
PROVIDERS: ADMIT Internal Medicine Pulmonary Disease; ATTEND Internal Medicine Pulmonary Disease
DX: F10.239 Alcohol dependence with withdrawal, unspecified (principal); K72.00 Acute and subacute hepatic failure without coma; D61.818 Other pancytopenia; D68.4 Acquired coagulation factor deficiency; K70.31 Alcoholic cirrhosis of liver with ascites; B19.20 Unspecified viral hepatitis C without hepatic coma; D69.59 Other secondary thrombocytopenia; E88.09 Other disorders of plasma-protein metabolism, not elsewhere classified; D64.89 Other specified anemias; Z87.891 Personal history of nicotine dependence

== ENCOUNTER 2016-12-13 15:44 | Emergency (ER) | payer OTHER ==
[2016-12-13 15:55] VITALS: PULSE 92; RESP 18; TEMP 98.5; O2SAT 100
--- NOTE | 2016-12-13 16:16 | ED PDOC ---
Lower Extremity Pain/Injury Time Seen by Provider: 12/13/16 15:57 Chief Complaint (Nursing): Lower Extremity Problem/Injury Chief Complaint (Provider): leg pain, fall History Per: Patient Additional Complaint(s): 51-year-old female presents with pain to right knee status post trip and fall while walking on the sidewalk earlier today. Patient tripped on uneven pavement. Patient denies dizziness or syncope prior to fall. She denies head injury or loss of consciousness as a result of fall. Patient sustained abrasions to knee and is not sure of last tetanus. Past Medical History Reviewed: Historical Data, Nursing Documentation, Vital Signs Vital Signs: Last Vital Signs Temp 98.5 F 12/13/16 15:53 Pulse 92 H 12/13/16 15:53 Resp 18 12/13/16 15:53 BP Pulse Ox 100 12/13/16 15:53 - Medical History PMH: No Chronic Diseases Other PMH: Liver disease due to etoh abuse - Surgical History Other surgeries: rhinoplasty - Family History Family History: States: No Known Family Hx - Living Arrangements Living Arrangements: With Family - Social History Current smoker - smoking cessation education provided: No Alcohol: Other (history of abuse, has not had drink in 3 weeks) Drugs: Denies - Home Medications Home Medications: Ambulatory Orders Medication Instructions Recorded Folic Acid 1 mg PO DAILY tab 12/04/16 Furosemide [Lasix] 40 mg PO DAILY #7 tab 12/04/16 Thiamine [Vitamin B1 Tab] 100 mg PO DAILY tab 12/04/16 Ibuprofen [Motrin Tab] 800 mg PO Q8 PRN #20 tab 12/13/16 - Allergies Allergies/Adverse Reactions: Allergies Allergy/AdvReac Type Severity Reaction Status Date / Time No Known Allergies Allergy Verified 11/06/16 23:28 Wells Criteria for PE - Wells Criteria for Pulmonary Embolism Clinical Signs and Symptoms of DVT: No P.E is #1 Diagnosis, or Equally Likely: No Heart Rate >100: No Immobilization at least 3 days;Surgery previous 4 weeks: No Previous, objectively diagnosed PE or DVT: No Hemoptysis: No Malignancy w/treatment within 6 months, or palliative: No Total Score: 0 Review of Systems ROS Statement: Except As Marked, All Systems Reviewed And Found Negative Musculoskeletal: Positive for: Other (right knee injury s/p tripi and fall) Neurological: Positive for: Other (no head injury or LOC as a result of fall) Physical Exam - Reviewed Nursing Documentation Reviewed: Yes Vital Signs Reviewed: Yes - Physical Exam Appears: Positive for: Well, Non-toxic, No Acute Distress Skin: Positive for: Normal Color Eye Exam: Positive for: Normal appearance Extremity: Positive for: Other (Moderate swelling and tenderness to right patellar region with superficial abrasions noted, mild ecchymosis also noted, full range of motion with pain, normal distal sensation right lower extremity, patient able to perform straight leg raise) Neurologic/Psych: Positive for: Alert, Oriented - ECG O2 Sat by Pulse Oximetry: 100 Pulse Ox Interpretation: Normal - Other Rad Right knee X-ray X-Ray: Interpreted by Me, Viewed By Me X-Ray Interpretation: nondisplaced patellar fracture Medical Decision Making Medical Decision Makin51 year old with right knee injury Plan: X-ray right knee Motrin for pain Tetanus booster Patient aware of x-ray results, all questions answered. Crutches and knee immobilizer given. Patient was given ortho referral and rx motrin for pain. Procedure Note: Abrasions to right knee were cleansed with normal saline and Betadine, bacitracin and gauze were applied. Knee immobilizer was then applied to right leg, neurovascular intact status post placement, procedure tolerated well by patient with no complications. Disposition - Clinical Impression Clinical Impression: Patellar fracture, Need for tetanus booster, Abrasion - Patient ED Disposition Is Patient to be Admitted: No Counseled Patient/Family Regarding: Studies Performed, Diagnosis, Need For Followup, Rx Given - Disposition Referrals: Morris Kulkarni MD [Staff Provider] - Disposition: Routine/Home Disposition Time: 17:37 Condition: STABLE Additional Instructions: Ice and rest the affected area as much as possible. Take prescription meds as directed as needed for pain. Use knee brace and crutches when walking. Prescriptions: Ibuprofen [Motrin Tab] 800 mg PO Q8 PRN #20 tab PRN Reason: Pain, Moderate (4-7) Instructions: Patellar Fracture (ED), Crutch Instructions (ED), Knee Immobilizer (ED), Diphtheria/Acellular Pertussis/Tetanus Booster Vaccine (Tdap) (Injection), Abrasion (ED)
[2016-12-13] MEDS ORDERED: TDAP Vaccine 0.5 mL Syr IM ONE (16:36)
--- NOTE | 2016-12-13 17:22 | RAD ---
Three views, right knee Indication: Trauma Comparison: None available Findings: Osseous demineralization. Degenerative changes. Nondisplaced acute fracture deformity of the patella. Moderate suprapatellar joint effusion. The remainder of the visualized osseous structures appear intact. Soft tissue swelling. Impression: Nondisplaced acute fracture deformity of the patella. Moderate suprapatellar joint effusion. Soft tissue swelling. Findings discussed with Connie Myers on 12/13/16 at 5:20 p.m.
== END 2016-12-13 18:23 | disposition home or self-care (01) ==
LOC: H.ER 15:44
DX: S82.001A Unspecified fracture of right patella, initial encounter for closed fracture (principal); S80.211A Abrasion, right knee, initial encounter; W01.0XXA Fall on same level from slipping, tripping and stumbling without subsequent striking against object, initial encounter; Y93.01 Activity, walking, marching and hiking; Y92.480 Sidewalk as the place of occurrence of the external cause; Y99.9 Unspecified external cause status

== ENCOUNTER 2017-02-26 15:57 | Emergency (ER) | payer OTHER ==
[2017-02-26 16:02] VITALS: BP 103/63; PULSE 85; RESP 16; TEMP 97.9; O2SAT 96
--- NOTE | 2017-02-26 17:45 | ED PDOC ---
Upper Extremity Pain/Injury Time Seen by Provider: 02/26/17 16:06 Chief Complaint (Nursing): Upper Extremity Problem/Injury Chief Complaint (Provider): Left shoulder pain x 1 hour, s/p fall History Per: Patient History/Exam Limitations: no limitations Onset/Duration Of Symptoms: Hrs, Days Current Symptoms Are (Timing): Still Present Quality: Dull Severity: Moderate Pain Scale Rating Of: 6 Additional Complaint(s): PT states she slipped on water in her home and landed on the left shoulder. Denies numbness/tingling. Past Medical History Reviewed: Historical Data, Nursing Documentation, Vital Signs Vital Signs: Last Vital Signs Temp 97.9 F 02/26/17 16:00 Pulse 85 02/26/17 16:00 Resp 16 02/26/17 16:00 BP 103/63 02/26/17 16:00 Pulse Ox 96 02/26/17 16:00 - Medical History PMH: No Chronic Diseases Denies: Chronic Kidney Disease - Surgical History Surgical History: No Surg Hx - Family History Family History: States: Unknown Family Hx - Living Arrangements Living Arrangements: With Family - Social History Current smoker - smoking cessation education provided: No Alcohol: > 2 Drinks/Day Drugs: Denies - Home Medications Home Medications: Ambulatory Orders Medication Instructions Recorded Folic Acid 1 mg PO DAILY tab 12/04/16 Furosemide [Lasix] 40 mg PO DAILY #7 tab 12/04/16 Thiamine [Vitamin B1 Tab] 100 mg PO DAILY tab 12/04/16 Ibuprofen [Motrin Tab] 800 mg PO Q8 PRN #20 tab 12/13/16 Ibuprofen [Motrin Tab] 800 mg PO Q6H PRN #20 tab 02/26/17 traMADol [Ultram] 50 mg PO Q6H PRN #15 tab 02/26/17 - Allergies Allergies/Adverse Reactions: Allergies Allergy/AdvReac Type Severity Reaction Status Date / Time No Known Allergies Allergy Verified 11/06/16 23:28 Review of Systems ROS Statement: Except As Marked, All Systems Reviewed And Found Negative Musculoskeletal: Positive for: Shoulder Pain (Left ) Physical Exam - Reviewed Nursing Documentation Reviewed: Yes Vital Signs Reviewed: Yes - Physical Exam Appears: Positive for: Well, Non-toxic, No Acute Distress Head Exam: Positive for: ATRAUMATIC, NORMAL INSPECTION, NORMOCEPHALIC Skin: Positive for: Normal Color (No ecchymosis ), Warm Eye Exam: Positive for: Normal appearance ENT: Positive for: Normal ENT Inspection Neck: Positive for: Normal, Painless ROM Cardiovascular/Chest: Positive for: Regular Rate, Rhythm Respiratory: Positive for: CNT, Normal Breath Sounds Pulses-Radial (L): 2+ Pulses-Radial (R): 2+ Back: Positive for: Normal Inspection Extremity: Positive for: Tenderness (Humeral head ), Capillary Refill, Other ((+ ) 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 Negative for: Normal ROM (Decreased ROM in the left shoulde due to pain ), Deformity, Swelling Neurologic/Psych: Positive for: Alert, Oriented - ECG O2 Sat by Pulse Oximetry: 96 Medical Decision Making Medical Decision Making: (+) humeral head Fx Immobilizer placed. PT neurovasularly intact Disposition - Clinical Impression Clinical Impression: Humerus fracture - Patient ED Disposition Is Patient to be Admitted: No Counseled Patient/Family Regarding: Diagnosis, Need For Followup, Rx Given - Disposition Referrals: [facility] [Outside] [facility] [Outside] Morris Kulkarni MD [Staff Provider] - Disposition: Routine/Home Disposition Time: 18:24 Condition: GOOD Additional Instructions: Ice, elevation, motrin. Tramadol for severe pain. Do not remove immobilized until seen by orthopedics. Prescriptions: Ibuprofen [Motrin Tab] 800 mg PO Q6H PRN #20 tab PRN Reason: Pain traMADol [Ultram] 50 mg PO Q6H PRN #15 tab PRN Reason: Pain Instructions: Arm Fracture in Adults (ED)
--- NOTE | 2017-02-26 18:09 | RAD ---
PROCEDURE: Radiographs of the Left Shoulder HISTORY: Pain s/p fall, landed on shoulder COMPARISON: Correlation made with concurrent radiographs of the left humerus FINDINGS: BONES: Comminuted fracture of the left humeral head which extends into the diametaphyseal region. JOINTS: Normal. Glenohumeral and acromioclavicular joints preserved. No osteoarthritis. SOFT TISSUES: Normal. OTHER FINDINGS: None. IMPRESSION: Comminuted fracture of the left humeral head which extends into the diametaphyseal region.
--- NOTE | 2017-02-26 18:10 | RAD ---
PROCEDURE: Radiographs of the left humerus. HISTORY: Left shoulder pain, slipped on water COMPARISON: Correlation made with concurrent radiographs left shoulder FINDINGS: BONES: Re- demonstrated is a comminutedfracture of the left humeral head which extends into the diametaphyseal region SOFT TISSUES: Normal. OTHER FINDINGS: None. IMPRESSION: Re- demonstrated is a comminutedfracture of the left humeral head which extends into the diametaphyseal region
== END 2017-02-26 18:56 | disposition home or self-care (01) ==
LOC: H.ER 15:57
DX: S42.202A Unspecified fracture of upper end of left humerus, initial encounter for closed fracture (principal); W01.0XXA Fall on same level from slipping, tripping and stumbling without subsequent striking against object, initial encounter; Y92.009 Unspecified place in unspecified non-institutional (private) residence as the place of occurrence of the external cause

== ENCOUNTER 2017-03-16 12:14 | Emergency (ER) | payer OTHER ==
[2017-03-16 12:21] VITALS: BP 125/52; PULSE 106; RESP 16; TEMP 98; O2SAT 100
--- NOTE | 2017-03-16 12:32 | ED PDOC ---
Lower Extremity Pain/Injury Time Seen by Provider: 03/16/17 12:23 Chief Complaint (Nursing): Lower Extremity Problem/Injury Chief Complaint (Provider): Left ankle pain History Per: Patient History/Exam Limitations: no limitations Onset/Duration Of Symptoms: Days (x3) Current Symptoms Are (Timing): Still Present Additional Complaint(s): Lyla Lind is a 51 year old female who presents to the emergency department via EMS for an evaluation of left foot pain s/p trip and fall 3 days ago at home. Patient did not seek medical attention at time of fall, she denies any head injury or LOC as result of fall. Patient was seen last week in emergency department and diagnosed with left humeral head fracture. She presents with sling in place to left arm. Patient states she has been taking Motrin and Ultram at home for pain. PMD: none provided Past Medical History Reviewed: Historical Data, Nursing Documentation, Vital Signs Vital Signs: Last Vital Signs Temp 98.0 F 03/16/17 12:18 Pulse 106 H 03/16/17 12:18 Resp 16 03/16/17 12:18 BP 125/52 L 03/16/17 12:18 Pulse Ox 100 03/16/17 12:18 - Medical History Other PMH: Alcoholic liver disease - Surgical History Surgical History: No Surg Hx, Appendectomy Other surgeries: "plastic surgery several years ago" - Family History Family History: States: No Known Family Hx - Living Arrangements Living Arrangements: Alone - Social History Current smoker - smoking cessation education provided: No Alcohol: > 2 Drinks/Day Drugs: Denies - Home Medications Home Medications: Ambulatory Orders Medication Instructions Recorded Folic Acid 1 mg PO DAILY tab 12/04/16 Furosemide [Lasix] 40 mg PO DAILY #7 tab 12/04/16 Thiamine [Vitamin B1 Tab] 100 mg PO DAILY tab 12/04/16 Ibuprofen [Motrin Tab] 800 mg PO Q8 PRN #20 tab 12/13/16 Ibuprofen [Motrin Tab] 800 mg PO Q6H PRN #20 tab 02/26/17 traMADol [Ultram] 50 mg PO Q6H PRN #15 tab 02/26/17 Ibuprofen [Motrin Tab] 800 mg PO Q8 PRN #20 tab 03/16/17 - Allergies Allergies/Adverse Reactions: Allergies Allergy/AdvReac Type Severity Reaction Status Date / Time No Known Allergies Allergy Verified 11/06/16 23:28 Wells Criteria for PE - Wells Criteria for Pulmonary Embolism Clinical Signs and Symptoms of DVT: No P.E is #1 Diagnosis, or Equally Likely: No Heart Rate >100: No Immobilization at least 3 days;Surgery previous 4 weeks: No Previous, objectively diagnosed PE or DVT: No Hemoptysis: No Malignancy w/treatment within 6 months, or palliative: No Total Score: 0 Review of Systems ROS Statement: Except As Marked, All Systems Reviewed And Found Negative Musculoskeletal: Positive for: Foot Pain (left foot and ankle injury) Physical Exam - Reviewed Nursing Documentation Reviewed: Yes Vital Signs Reviewed: Yes - Physical Exam Appears: Positive for: Well, Non-toxic, No Acute Distress Head Exam: Positive for: ATRAUMATIC, NORMAL INSPECTION, NORMOCEPHALIC Skin: Positive for: Normal Color. Negative for: Rash Eye Exam: Positive for: Normal appearance Extremity: Positive for: Tenderness (Diffuse tenderness to dorsum of left foot as well as left lateral malleolus, decreased range of motion of left ankle and foot, swelling or tenderness), Other (Sling and placed the left upper extremity) Neurologic/Psych: Positive for: Alert, Oriented - ECG O2 Sat by Pulse Oximetry: 100 (RA) Pulse Ox Interpretation: Normal - Other Rad Left foot and ankle x-ray X-Ray: Interpreted by Me, Viewed By Me X-Ray Interpretation: Degenerative changes, no acute fracture or dislocation Medical Decision Making Medical Decision Making: Initial Impression: Left foot and ankle injury Initial Plan: * Xray Ankle (left) * Xray foot (left) * Ice pack * Patient states that she took ibuprofen one hour prior to arrival. Patient is aware of x-ray results. See procedure note. Crutches declined. Motrin prescription provided along with a referral to podiatry clinic for follow -up. Scribe Attestation: Documented by Mackenzie Mcclellan, acting as a scribe for Connie Myers PA-C. Provider Scribe Attestation: All medical record entries made by the Scribe were at my direction and personally dictated by me. I have reviewed the chart and agree that the record accurately reflects my personal performance of the history, physical exam, medical decision making, and the department course for this patient. I have also personally directed, reviewed, and agree with the discharge instructions and disposition. Procedures - Splinting Location: Left foot and ankle Pre-Made Type: schuyler wrap, aircast, ortho shoe Pre-Proc Neuro Vasc Exam: normal Post-Proc Neuro Vasc Exam: normal Disposition - Clinical Impression Clinical Impression: Ankle sprain, Foot sprain - Patient ED Disposition Is Patient to be Admitted: No Counseled Patient/Family Regarding: Studies Performed, Diagnosis, Need For Followup, Rx Given - Disposition Referrals: Podiatry Clinic [Outside] Disposition: Routine/Home Disposition Time: 13:23 Condition: STABLE Additional Instructions: Ice, rest and elevate affected area. Take prescription meds as directed as needed for pain. Follow-up with podiatry clinic in 2-3 days. Prescriptions: Ibuprofen [Motrin Tab] 800 mg PO Q8 PRN #20 tab PRN Reason: Pain, Moderate (4-7) Instructions: Ankle Sprain (ED), Ankle Stirrup Splint (ED), Foot Sprain (ED) Forms: [employer] (Ecuadorean)
--- NOTE | 2017-03-16 14:29 | RAD ---
PROCEDURE: Left Foot Radiographs. HISTORY: Posttraumatic left ankle pain. COMPARISON: 02/29/2016. FINDINGS: BONES: Avulsion fracture from the talus. Healed fracture 5th digit JOINTS: Normal. SOFT TISSUES: Soft tissue swelling attests to the acuity of the fracture. OTHER FINDINGS: None. IMPRESSION: Acute talar fracture best seen on the lateral view. The finding is marked on the study for review.
--- NOTE | 2017-03-16 16:33 | RAD ---
PROCEDURE: Left Ankle Radiographs. HISTORY: trauma COMPARISON: March 16, 2017. FINDINGS: BONES: Talar fracture. The finding is marked on the study for review. JOINTS: Normal. No osteoarthritis. Ankle mortise maintained. SOFT TISSUES: Normal. OTHER FINDINGS: None. IMPRESSION: Acute, avulsed talar fracture.
== END 2017-03-16 14:09 | disposition home or self-care (01) ==
LOC: H.ER 12:14
DX: S93.402A Sprain of unspecified ligament of left ankle, initial encounter (principal); S93.602A Unspecified sprain of left foot, initial encounter; W19.XXXA Unspecified fall, initial encounter; Y92.008 Other place in unspecified non-institutional (private) residence as the place of occurrence of the external cause

== ENCOUNTER 2017-11-16 06:50 | Inpatient (IN) | payer OTHER ==
[2017-11-16] MEDS ORDERED: Sodium Chloride 0.9% 1,000 ML IV STA ×2 (07:08→07:14)
--- NOTE | 2017-11-16 07:12 | ED PDOC ---
HPI: General Adult Time Seen by Provider: 11/16/17 06:51 Chief Complaint (Nursing): Dizziness/Lightheaded History Per: Patient Onset/Duration Of Symptoms: Hrs (1) Current Symptoms Are (Timing): Still Present Severity: Moderate Pain Scale Rating Of: 3 Additional Complaint(s): Dizziness, fell while going to bathroom with injury to left lateral ribs. Denies head or neck injury. H/o ETOH abuse, drinks daily, last drank yesterday. Feels weak and tremulous. Also c/o nausea and vomiting. Past Medical History Vital Signs: Last Vital Signs Temp 98.2 F 11/16/17 07:03 Pulse 78 11/16/17 07:03 Resp 18 11/16/17 07:03 BP 89/66 L 11/16/17 07:03 Pulse Ox 97 11/16/17 07:13 - Medical History PMH: No Chronic Diseases Denies: Chronic Kidney Disease - Surgical History Surgical History: Appendectomy - Family History Family History: States: Unknown Family Hx - Home Medications Home Medications: Ambulatory Orders Medication Instructions Recorded Folic Acid 1 mg PO DAILY tab 12/04/16 Furosemide [Lasix] 40 mg PO DAILY #7 tab 12/04/16 Thiamine [Vitamin B1 Tab] 100 mg PO DAILY tab 12/04/16 Ibuprofen [Motrin Tab] 800 mg PO Q8 PRN #20 tab 12/13/16 Ibuprofen [Motrin Tab] 800 mg PO Q6H PRN #20 tab 02/26/17 traMADol [Ultram] 50 mg PO Q6H PRN #15 tab 02/26/17 Ibuprofen [Motrin Tab] 800 mg PO Q8 PRN #20 tab 03/16/17 - Allergies Allergies/Adverse Reactions: Allergies Allergy/AdvReac Type Severity Reaction Status Date / Time No Known Allergies Allergy Verified 11/16/17 07:02 Review of Systems ROS Statement: Except As Marked, All Systems Reviewed And Found Negative Neurological: Positive for: Dizziness Physical Exam - Reviewed Nursing Documentation Reviewed: Yes Vital Signs Reviewed: Yes - Physical Exam Appears: Positive for: Non-toxic, No Acute Distress Head Exam: Positive for: ATRAUMATIC, NORMAL INSPECTION, NORMOCEPHALIC Skin: Positive for: Warm. Negative for: Normal Color (Multiple ecchymosis back left lateral ribs, left upper ext. Various stages) Eye Exam: Positive for: EOMI, Normal appearance, PERRL ENT: Positive for: Normal ENT Inspection Neck: Positive for: Normal, Painless ROM Cardiovascular/Chest: Positive for: Regular Rate, Rhythm. Negative for: Chest Non Tender (Tenderness left lateral ribs. No flail) Respiratory: Positive for: CNT, Normal Breath Sounds Gastrointestinal/Abdominal: Positive for: Normal Exam, Bowel Sounds, Soft Back: Positive for: Normal Inspection Extremity: Positive for: Normal ROM Neurologic/Psych: Positive for: Alert, Oriented, Other (Mild tremor upper ext bilat.) - Laboratory Results Result Diagrams: 11/16/17 07:20 11/16/17 07:20 - ECG O2 Sat by Pulse Oximetry: 97 Disposition - Clinical Impression Clinical Impression: Alcohol withdrawal, Rib fracture - Patient ED Disposition Is Patient to be Admitted: Yes - Disposition Disposition Time: 08:41 Condition: FAIR Forms: [facility] (Hungarian) - Pt Status Changed To: Hospital Disposition Of: Observation - POA Present On Arrival: None
[2017-11-16 07:40] LABS: BASO % 0.4 % (0.0-2.0); EOS % 0.1 % (0.0-4.0); HEMOGLOBIN 13.4 g/dL (12.0-16.0); LYMPH # 0.9 K/uL (1.0-4.3); LYMPH % 11.2 % (20.0-40.0); MEAN CORPUSCULAR HEMOGLOBIN 31.9 pg (27.0-31.0); MEAN CORPUSCULAR HGB CONC 34.7 g/dL (33.0-37.0); MEAN PLATELET VOLUME 8.3 fl (7.2-11.7); MONO # 0.5 K/uL (0.0-0.8); MONO % 5.8 % (0.0-10.0); NEUT # 6.8 K/uL (1.8-7.0); NEUT % 82.5 % (50.0-75.0); NRBC % 0.1 % (0.0-0.0); RBC 4.19 Mil/uL (3.80-5.20); RED CELL DISTRIBUTION WIDTH 13.9 % (11.5-14.5); WHITE BLOOD COUNT 8.2 K/uL (4.8-10.8)
[2017-11-16 07:41] LABS: ALB/GLOB RATIO 0.8 (1.0-2.1); ALBUMIN 4.8 g/dL (3.5-5.0); ALT/SGPT 283 U/L (9-52); AST/SGOT 564 U/L (14-36); BLOOD UREA NITROGEN 25 mg/dl (7-17); CALCIUM 9.8 mg/dL (8.4-10.2); GFR AFRICAN-AMERICAN > 60; GFR NON-AFRICAN AMERICAN > 60
--- NOTE | 2017-11-16 08:05 | CT ---
EXAM: CT Head Without Intravenous Contrast CLINICAL HISTORY: 52 years old, female; Signs and symptoms; Syncope and collapse TECHNIQUE: Axial computed tomography images of the head/brain without intravenous contrast. All CT scans at this facility use one or more dose reduction techniques, viz.: automated exposure control; ma/kV adjustment per patient size (including targeted exams where dose is matched to indication; i.e. head); or iterative reconstruction technique. 327 images are submitted. Coronal and sagittal reformatted images were created and reviewed. COMPARISON: No relevant prior studies available. FINDINGS: Brain: Cerebral and cerebellar volume loss. Minimal Patchy hypodensity is seen in the periventricular and subcortical white matter. No hemorrhage. Ventricles: Unremarkable. No ventriculomegaly. Bones/joints: Unremarkable. No acute fracture. Soft tissues: Unremarkable. Sinuses: Unremarkable. No acute sinusitis. Mastoid air cells: Unremarkable. No mastoid effusion. Orbits: The visualized portions of the globe and lens appear intact. IMPRESSION: No evidence of an acute intracranial hemorrhage, midline shift or mass effect is identified.
--- NOTE | 2017-11-16 08:49 | RAD ---
PROCEDURE: Radiographs of the Chest and Right Ribs. HISTORY: trauma COMPARISON: Chest x-ray 12/01/2016 TECHNIQUE: Frontal radiograph of the chest and multiple oblique radiographs of the right ribs were obtained. FINDINGS: RIGHT RIBS: Suspect healing fractures right 4th rib 10th rib. Possible acute right 5th rib fracture. LUNGS: Clear. PLEURA: No pneumothorax or pleural fluid. CARDIOVASCULAR: Normal sized heart. No pulmonary vascular congestion. OTHER FINDINGS: None. IMPRESSION: Healing right 4th and 10th rib fractures and possible acute right 5th rib fracture, nondisplaced. No pneumothorax/hemothorax.
--- NOTE | 2017-11-16 08:49 | RAD ---
PROCEDURE: Radiographs of the Lumbar Spine. HISTORY: trauma COMPARISON: No prior. FINDINGS: BONES: Normal alignment. No listhesis. No fracture. DISC SPACES: Unremarkable. OTHER FINDINGS: None. IMPRESSION: Unremarkable radiographs of the lumbar spine.
--- NOTE | 2017-11-16 11:43 | US ---
HISTORY: abn liver enz COMPARISON: None. TECHNIQUE: Sonographic evaluation of the abdomen. FINDINGS: LIVER: Measures 18.6 cm. Mildly enlarged. Normal echogenicity of the liver parenchyma. No mass. No intrahepatic bile duct dilatation. GALLBLADDER: Unremarkable. No gallstones. COMMON BILE DUCT: Measures 6 mm. No stones. No dilatation. PANCREAS: Unremarkable as visualized. No mass. No ductal dilatation. RIGHT KIDNEY: Measures 10.9cm. Normal echogenicity. No calculus, mass, or hydronephrosis. LEFT KIDNEY: Measures 10.1cm. Normal echogenicity. No calculus, mass, or hydronephrosis. SPLEEN: Normal in size and contour. No mass. AORTA: No aneurysmal dilatation. IVC: Unremarkable. OTHER FINDINGS: None. IMPRESSION: Minimal hepatomegaly. Otherwise unremarkable examination.
[2017-11-16 12:24] VITALS: BMI 21.6
--- NOTE | 2017-11-16 12:36 | CP.PCM.HP ---
<Reuben Ward - Last Filed: 11/16/17 12:36> History of Present Illness - History of Present Illness History of Present Illness: 52 y/o F with pMhx of etoh abuse and alcoholic, liver disease presented to ED after falling at home last night. Patient states she slipeed and her body hit theground with the right side. Denies LOC, vomiting post falling, urinary or stool changes. Admits she was drinking heavy and admits hx of falls in the past. Denies domestic violence. Had 3-4 NBNB vomiting last night. C/O chronic tremor and binge drinking since she was on her 20s. Lives with who also drinks. They both buy ETOH. Not currently working. Would like to quit. She follows up with GI as outpatient and doesnt have PMD. Has not been compliant with home meds. Denies hematemesis, hematochezia, melena. Admits feeling depressed. Denies SI or HI Present on Admission - Present on Admission Any Indicators Present on Admission: No Review of Systems - Review of Systems All systems: reviewed and no additional remarkable complaints except (those described on HPI) Past Patient History - Infectious Disease Hx of Infectious Diseases: None - Past Social History Smoking Status: Former Smoker Alcohol: > 2 Drinks/Day Drugs: Denies Home Situation {Lives}: With Family - CARDIAC Hx Cardiac Disorders: No - PULMONARY Hx Respiratory Disorders: No - NEUROLOGICAL Hx Neurological Disorder: No - HEENT Hx HEENT Problems: No - RENAL Hx Chronic Kidney Disease: No - ENDOCRINE/METABOLIC Hx Endocrine Disorders: No - HEMATOLOGICAL/ONCOLOGICAL Hx Blood Disorders: No - INTEGUMENTARY Hx Dermatological Problems: No - MUSCULOSKELETAL/RHEUMATOLOGICAL Hx Musculoskeletal Disorders: No - GASTROINTESTINAL Hx Gastrointestinal Disorders: Yes Other/Comment: Alcoholic liver disease - GENITOURINARY/GYNECOLOGICAL Hx Genitourinary Disorders: No - PSYCHIATRIC Hx Psychophysiologic Disorder: Yes Hx Depression: Yes Hx Substance Use: No - SURGICAL HISTORY Hx Surgeries: Yes Hx Appendectomy: Yes - ANESTHESIA Hx Anesthesia: Yes Hx Anesthesia Reactions: No Hx Malignant Hyperthermia: No Meds Allergies/Adverse Reactions: Allergies Allergy/AdvReac Type Severity Reaction Status Date / Time No Known Allergies Allergy Verified 11/16/17 07:02 Physical Exam - Constitutional Appears: Non-toxic - Eye Exam Eye Exam: Normal appearance, PERRL. absent: Nystagmus - ENT Exam ENT Exam: Mucous Membranes Moist - Respiratory Exam Respiratory Exam: Chest Wall Tenderness (R/side), Clear to Auscultation Bilateral, NORMAL BREATHING PATTERN. absent: Decreased Breath Sounds, Rales, Rhonchi, Wheezes, Respiratory Distress, Stridor - Cardiovascular Exam Cardiovascular Exam: REGULAR RHYTHM, +S1, +S2. absent: Gallop - GI/Abdominal Exam GI & Abdominal Exam: Normal Bowel Sounds, Soft, Tenderness (Difusse). absent: Distended, Firm, Guarding, Rebound, Rigid - Extremities Exam Extremities exam: Positive for: normal capillary refill, pedal pulses present. Negative for: calf tenderness, pedal edema, tenderness - Neurological Exam Neurological exam: Alert, Oriented x3 Additional comments: Intention tremor - Psychiatric Exam Psychiatric exam: Anxious, Depressed - Skin Skin Exam: Normal Color, Warm Results - Vital Signs Recent Vital Signs: Last Vital Signs Temp 98.2 F 11/16/17 07:03 Pulse 78 11/16/17 07:03 Resp 18 11/16/17 07:03 BP 107/66 11/16/17 09:27 Pulse Ox 97 11/16/17 08:41 - Labs Result Diagrams: 11/16/17 07:20 11/16/17 07:20 Labs: Laboratory Results - last 24 hr 11/16/17 11/16/17 07:20 07:20 WBC 8.2 D RBC 4.19 Hgb 13.4 D Hct 38.6 MCV 92.0 D MCH 31.9 H MCHC 34.7 RDW 13.9 Plt Count 98 L D MPV 8.3 Neut % (Auto) 82.5 H Lymph % (Auto) 11.2 L Fountain % (Auto) 5.8 Eos % (Auto) 0.1 Baso % (Auto) 0.4 Neut # (Auto) 6.8 Lymph # (Auto) 0.9 L Fountain # (Auto) 0.5 Eos # (Auto) 0.0 Baso # (Auto) 0.0 Sodium 139 Potassium 5.2 H Chloride 92 L Carbon Dioxide 25 Anion Gap 27 H BUN 25 H Creatinine 0.9 Est GFR ( Amer) > 60 Est GFR (Non-Af Amer) > 60 Random Glucose 131 H Calcium 9.8 Total Bilirubin 0.9 AST 564 H ALT 283 H D Alkaline Phosphatase 108 Total Protein 10.7 H Albumin 4.8 Globulin 5.9 H Albumin/Globulin Ratio 0.8 L Alcohol, Quantitative 111 H Assessment & Plan - Assessment and Plan (Free Text) Assessment: Admitted for alcoholic liver disease/alcohol withdrawal and rib Fx Depression GI consult AST/ALT elevated. Order abd US C/w Nadolol Hold Aldactone for now(Serum K 5.2) C/W Lasix ETOH withdrawal protocol Ativan PRN Tylenol for pain PPIs Psychology consult Psychiatry consult <Ja Williamson L - Last Filed: 11/17/17 13:41> Results - Vital Signs Recent Vital Signs: Last Vital Signs Temp 98 F 11/17/17 13:00 Pulse 80 11/17/17 13:00 Resp 18 11/17/17 13:00 BP 97/63 L 11/17/17 13:00 Pulse Ox 98 11/17/17 13:00 - Labs Result Diagrams: 11/16/17 07:20 11/17/17 05:00 Labs: Laboratory Results - last 24 hr 11/16/17 11/17/17 13:46 05:00 PT 12.7 INR 1.1 APTT 32.1 Sodium 133 Potassium 4.6 Chloride 91 L Carbon Dioxide 29 Anion Gap 18 BUN 59 H Creatinine 2.8 H Est GFR ( Amer) 21 Est GFR (Non-Af Amer) 18 Random Glucose 96 Calcium 8.9 Total Bilirubin 1.4 H AST 288 H D ALT 190 H D Alkaline Phosphatase 84 Total Protein 8.7 H Albumin 3.9 Globulin 4.8 H Albumin/Globulin Ratio 0.8 L Assessment & Plan - Assessment and Plan (Free Text) Plan: I was present during evaluation and discussed with Dr Ward re plans of care and tx. Ja Williamson M.D.
[2017-11-16 13:21] LABS: BARBITURATES, UR NEGATIVE (NEGATIVE); BENZODIAZEPINES, UR NEGATIVE (NEGATIVE); OPIATES, UR NEGATIVE (NEGATIVE); PHENCYCLIDINE, UR NEGATIVE (NEGATIVE)
[2017-11-16] MEDS: Pantoprazole 40 mg EC Tab PO SCH (13:30)
[2017-11-16 16:19] LABS: INR 1.1 (0.9-1.2); PARTIAL THROMBOPLASTIN TIME 32.1 Seconds (25.6-37.1); PROTHROMBIN TIME 12.7 Seconds (9.8-13.1)
--- NOTE | 2017-11-16 18:29 | CARD ---
APPROVED REPORT EKG Measurement Heart [id number] <Conclusion> Normal sinus rhythm Left axis deviation Septal infarct, age undetermined Abnormal ECG
[2017-11-17] MEDS ORDERED: Pneumococcal 23-Valent Vaccine IM ONE (06:00)
[2017-11-17 06:32] LABS: ALB/GLOB RATIO 0.8 (1.0-2.1); ALBUMIN 3.9 g/dL (3.5-5.0); CALCIUM 8.9 mg/dL (8.4-10.2)
[2017-11-17] MEDS ORDERED: Sodium Chloride 0.9% 1,000 ML IV SCH (07:15)
--- NOTE | 2017-11-17 07:59 | CP.PCM.CON ---
History of Present Illness - History of Present Illness History of Present Illness: Pt is a 52 year old female admitted to [facility] and referred to the video game script writer for bob. Med history positive for fall-fx of ribs, cirrohosis of liver, Hep C recently diagnosed. Pt reported a long history of alcoholism and recent relapse though she had only been sober for 5> months. 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 Pt reported use of a methadone program for a period of time. Social History: pt lives in [place] with her of 6 years. She was previously for a short period (3 years). Pt has no children, no siblings. Her is positive for alcohol dependence as well (past seizures due to his alcoholism). 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 Psych- Pt denied a psychiatric history, denied counseling apart from drug counseling. No history of alcohol intervention (rehab or past detox) according to her. MSE: pt alert, oriented x3, relevant/coherent, no psychosis, affect constricted , mood dysphoric over relapse, fall and medical consequences, Pt also concerned with , his alcohol abuse and their future (medical and marital). Reccomendations Intensive outpatient program for alcohol abuse ([facility] or [facility]) Referral for continued care following IOP participation Dx: Alcohol Dependence Thank you for this referral, Dr. Cho Past Patient History - Infectious Disease Hx of Infectious Diseases: None - Past Medical History & Family History Past Medical History?: Yes - Past Social History Smoking Status: Former Smoker - CARDIAC Hx Cardiac Disorders: No - PULMONARY Hx Respiratory Disorders: No - NEUROLOGICAL Hx Neurological Disorder: No - HEENT Hx HEENT Problems: No - RENAL Hx Chronic Kidney Disease: No - ENDOCRINE/METABOLIC Hx Endocrine Disorders: No - HEMATOLOGICAL/ONCOLOGICAL Hx Blood Disorders: No Hx AIDS: No Hx Human Immunodeficiency Virus (HIV): No - INTEGUMENTARY Hx Dermatological Problems: No - MUSCULOSKELETAL/RHEUMATOLOGICAL Hx Musculoskeletal Disorders: No Hx Falls: Yes - GASTROINTESTINAL Hx Gastrointestinal Disorders: Yes Other/Comment: Alcoholic liver disease - GENITOURINARY/GYNECOLOGICAL Hx Genitourinary Disorders: No - PSYCHIATRIC Hx Psychophysiologic Disorder: Yes Hx Substance Use: No - SURGICAL HISTORY Hx Surgeries: No - ANESTHESIA Hx Anesthesia: Yes Hx Anesthesia Reactions: No Hx Malignant Hyperthermia: No Has any member of the family had a problem w/ anesthesia?: No Meds Allergies/Adverse Reactions: Allergies Allergy/AdvReac Type Severity Reaction Status Date / Time No Known Allergies Allergy Verified 11/16/17 07:02 - Medications Medications: Current Medications Furosemide (Lasix) 40 mg PO DAILY [facility] Sodium Chloride (Sodium Chloride 0.9%) 1,000 mls @ 500 mls/hr IV .Q2H [facility] Stop: 11/17/17 09:14 Ketorolac Tromethamine (Toradol) 30 mg IVP Q6 PRN PRN Reason: Pain, severe (8-10) Last Admin: 11/16/17 17:18 Dose: 30 mg Ketorolac Tromethamine (Toradol) 15 mg IVP Q6 PRN PRN Reason: Pain, moderate (4-7) Last Admin: 11/16/17 21:27 Dose: 15 mg Lorazepam (Ativan) 0.5 mg PO TID PRN PRN Reason: Symptoms of alcohol withdrawl Last Admin: 11/16/17 23:36 Dose: 0.5 mg Nadolol (Corgard) 20 mg PO DAILY [facility] Last Admin: 11/16/17 13:31 Dose: 20 mg Ondansetron HCl (Zofran Inj) 4 mg IVP Q6 PRN PRN Reason: Nausea/Vomiting Pantoprazole Sodium (Protonix Ec Tab) 40 mg PO DAILY [facility] Last Admin: 11/16/17 13:30 Dose: 40 mg Spironolactone (Aldactone) 100 mg PO DAILY [facility] Results - Vital Signs Recent Vital Signs: Last Vital Signs Temp 98.8 F 11/17/17 05:52 Pulse 71 11/17/17 05:52 Resp 18 11/17/17 05:52 BP 102/66 11/17/17 05:52 Pulse Ox 100 11/17/17 05:52 - Labs Result Diagrams: 11/16/17 07:20 11/17/17 05:00 Labs: Laboratory Results - last 24 hr 11/16/17 11/16/17 11/17/17 11:50 13:46 05:00 PT 12.7 INR 1.1 APTT 32.1 Sodium 133 Potassium 4.6 Chloride 91 L Carbon Dioxide 29 Anion Gap 18 BUN 59 H Creatinine 2.8 H Est GFR ( Amer) 21 Est GFR (Non-Af Amer) 18 Random Glucose 96 Calcium 8.9 Total Bilirubin 1.4 H AST 288 H D ALT 190 H D Alkaline Phosphatase 84 Total Protein 8.7 H Albumin 3.9 Globulin 4.8 H Albumin/Globulin Ratio 0.8 L Urine Opiates Screen Negative Urine Methadone Screen Negative Ur Barbiturates Screen Negative Ur Phencyclidine Scrn Negative Ur Amphetamines Screen Negative U Benzodiazepines Scrn Negative U Oth Cocaine Metabols Negative U Cannabinoids Screen Negative
[2017-11-17] MEDS: Pantoprazole 40 mg EC Tab PO SCH (08:09)
--- NOTE | 2017-11-17 12:31 | CP.PCM.CON ---
History of Present Illness - History of Present Illness History of Present Illness: CONSULT REQUESTED FOR ALCOHOL USE DISORDER 52 y/o F with pMhx of alcohol use disorder and alcoholic liver disease presented to ED after falling at home while intoxicated pt reported use of alcohol since age 18 with binge drinking, longest period of abstinence since then about 6months, no history of inpatient rehab pt also has history of opiate use in full sustained remission pt denied any current symptoms of depression, denied changes in sleep or appetite , denied manic pr psychotic symptoms , denied hx of DT,S seizures or black out, pt reported that one of her triggers is that her also uses alcohol and indicated that they will be seeking outpatient help, pt denied any need to be on psychiatric unit and indicated she refuses inpatient rehab, and would only seek intensive outpatient treatment pt denied any previous history of psychiatric treatment, denied any previous suicidal attempts Past Patient History - Infectious Disease Hx of Infectious Diseases: None - Past Medical History & Family History Past Medical History?: Yes - Past Social History Smoking Status: Former Smoker - CARDIAC Hx Cardiac Disorders: No - PULMONARY Hx Respiratory Disorders: No - NEUROLOGICAL Hx Neurological Disorder: No - HEENT Hx HEENT Problems: No - RENAL Hx Chronic Kidney Disease: No - ENDOCRINE/METABOLIC Hx Endocrine Disorders: No - HEMATOLOGICAL/ONCOLOGICAL Hx Blood Disorders: No Hx AIDS: No Hx Human Immunodeficiency Virus (HIV): No - INTEGUMENTARY Hx Dermatological Problems: No - MUSCULOSKELETAL/RHEUMATOLOGICAL Hx Musculoskeletal Disorders: No Hx Falls: Yes - GASTROINTESTINAL Hx Gastrointestinal Disorders: Yes Other/Comment: Alcoholic liver disease - GENITOURINARY/GYNECOLOGICAL Hx Genitourinary Disorders: No - PSYCHIATRIC Hx Psychophysiologic Disorder: Yes Hx Substance Use: No - SURGICAL HISTORY Hx Surgeries: No - ANESTHESIA Hx Anesthesia: Yes Hx Anesthesia Reactions: No Hx Malignant Hyperthermia: No Has any member of the family had a problem w/ anesthesia?: No Meds Allergies/Adverse Reactions: Allergies Allergy/AdvReac Type Severity Reaction Status Date / Time No Known Allergies Allergy Verified 11/16/17 07:02 - Medications Medications: Current Medications Furosemide (Lasix) 40 mg PO DAILY [facility] Ketorolac Tromethamine (Toradol) 30 mg IVP Q6 PRN PRN Reason: Pain, severe (8-10) Last Admin: 11/16/17 17:18 Dose: 30 mg Ketorolac Tromethamine (Toradol) 15 mg IVP Q6 PRN PRN Reason: Pain, moderate (4-7) Last Admin: 11/17/17 08:06 Dose: 15 mg Lorazepam (Ativan) 0.5 mg PO TID PRN PRN Reason: Symptoms of alcohol withdrawl Last Admin: 11/16/17 23:36 Dose: 0.5 mg Nadolol (Corgard) 20 mg PO DAILY [facility] Last Admin: 11/16/17 13:31 Dose: 20 mg Ondansetron HCl (Zofran Inj) 4 mg IVP Q6 PRN PRN Reason: Nausea/Vomiting Pantoprazole Sodium (Protonix Ec Tab) 40 mg PO DAILY [facility] Last Admin: 11/17/17 08:09 Dose: 40 mg Spironolactone (Aldactone) 100 mg PO DAILY [facility] Physical Exam - Psychiatric Exam Additional comments: pt seen in bed, cooperative good eye contact, relatively guarded about her history of alcohol use, speech normal, thought form coherent, denied any current suicidalor homicidal ideations, denied perceptual disturbances, non elicited alert awake oriented x3, fair insight and judgment Results - Vital Signs Recent Vital Signs: Last Vital Signs Temp 98.6 F 11/17/17 08:00 Pulse 75 11/17/17 08:00 Resp 20 11/17/17 08:00 BP 97/65 L 11/17/17 08:00 Pulse Ox 99 11/17/17 08:00 - Labs Result Diagrams: 11/16/17 07:20 11/17/17 05:00 Labs: Laboratory Results - last 24 hr 11/16/17 11/16/17 11/17/17 11:50 13:46 05:00 PT 12.7 INR 1.1 APTT 32.1 Sodium 133 Potassium 4.6 Chloride 91 L Carbon Dioxide 29 Anion Gap 18 BUN 59 H Creatinine 2.8 H Est GFR ( Amer) 21 Est GFR (Non-Af Amer) 18 Random Glucose 96 Calcium 8.9 Total Bilirubin 1.4 H AST 288 H D ALT 190 H D Alkaline Phosphatase 84 Total Protein 8.7 H Albumin 3.9 Globulin 4.8 H Albumin/Globulin Ratio 0.8 L Urine Opiates Screen Negative Urine Methadone Screen Negative Ur Barbiturates Screen Negative Ur Phencyclidine Scrn Negative Ur Amphetamines Screen Negative U Benzodiazepines Scrn Negative U Oth Cocaine Metabols Negative U Cannabinoids Screen Negative Assessment & Plan - Assessment and Plan (Free Text) Assessment: alcohol use disorder opiate use disorder in full sustained remission Plan: discussed with pt the negative impact of alcohol on her health and the risk of relapse on discharge also discussed possible admission to psychiatry for further referral to inpatient rehab, pt declined continue with ativan for symptoms and signs of alcohol withdrawal social security benefits interviewer can provide referrals to intensive outpatient treatment pt at current mental status denied any suicidal or homicidal ideations denied perceptual disturbances pt psychiatricaly cleared for discharge upon medical clearence
[2017-11-17] MEDS: Sodium Chloride 0.9% 1,000 ML IV SCH ×2 (13:14→21:19)
--- NOTE | 2017-11-17 13:46 | CP.PCM.PN ---
Subjective - Date & Time of Evaluation Date of Evaluation: 11/17/17 Time of Evaluation: 13:44 - Subjective Subjective: Patient feels a lot better. Has no dizziness Able to eat. Psych evals were performed. Liver enzymes are still elevated but has gone down significantly. Noted increase in BUN and creatinine prob from late effect of dehydration. Objective - Vital Signs/Intake and Output Vital Signs (last 24 hours): Temp Pulse Resp BP Pulse Ox 98 F 80 18 97/63 L 98 11/17/17 13:00 11/17/17 13:00 11/17/17 13:00 11/17/17 13:00 11/17/17 13:00 - Medications Medications: Current Medications Folic Acid (Folic Acid) 1 mg PO DAILY [facility] Last Admin: 11/17/17 13:15 Dose: 1 mg Sodium Chloride (Sodium Chloride 0.9%) 1,000 mls @ 100 mls/hr IV .Q10H [facility] Stop: 11/18/17 12:00 Last Admin: 11/17/17 13:14 Dose: 100 mls/hr Ketorolac Tromethamine (Toradol) 30 mg IVP Q6 PRN PRN Reason: Pain, severe (8-10) Last Admin: 11/16/17 17:18 Dose: 30 mg Ketorolac Tromethamine (Toradol) 15 mg IVP Q6 PRN PRN Reason: Pain, moderate (4-7) Last Admin: 11/17/17 08:06 Dose: 15 mg Lorazepam (Ativan) 0.5 mg PO TID PRN PRN Reason: Symptoms of alcohol withdrawl Last Admin: 11/17/17 13:25 Dose: 0.5 mg Nadolol (Corgard) 20 mg PO DAILY [facility] Last Admin: 11/17/17 09:16 Dose: Not Given Ondansetron HCl (Zofran Inj) 4 mg IVP Q6 PRN PRN Reason: Nausea/Vomiting Pantoprazole Sodium (Protonix Ec Tab) 40 mg PO DAILY [facility] Last Admin: 11/17/17 08:09 Dose: 40 mg Spironolactone (Aldactone) 100 mg PO DAILY [facility] Thiamine HCl (Vitamin B1 Tab) 100 mg PO DAILY [facility] Last Admin: 11/17/17 13:15 Dose: 100 mg - Labs Labs: 11/16/17 07:20 11/17/17 05:00 PT 12.7 Seconds (9.8-13.1) 11/16/17 13:46 INR 1.1 (0.9-1.2) 11/16/17 13:46 APTT 32.1 Seconds (25.6-37.1) 11/16/17 13:46 - Head Exam Head Exam: NORMAL INSPECTION - ENT Exam ENT Exam: Mucous Membranes Moist - Respiratory Exam Respiratory Exam: Clear to Ausculation Bilateral - Cardiovascular Exam Cardiovascular Exam: REGULAR RHYTHM - GI/Abdominal Exam GI & Abdominal Exam: Normal Bowel Sounds - Neurological Exam Neurological Exam: Awake, Oriented x3 Assessment and Plan (1) Rib fracture Status: Acute (2) Alcohol intoxication Status: Acute (3) Ascites Status: Acute (4) Cirrhosis of liver Status: Acute - Assessment and Plan (Free Text) Plan: Check for hep A B C hep C quantitative test Cont meds start hydration with NS cont diet as tolerated. follow up with Psychiatry regular floor
[2017-11-17 15:31] VITALS: RESP 20
[2017-11-17 15:36] LABS: ALB/GLOB RATIO 0.8 (1.0-2.1); ALBUMIN 3.7 g/dL (3.5-5.0); BILIRUBIN,DIRECT 0.5 mg/ml (0.0-0.4)
[2017-11-17 20:06] LABS: HEPATITIS B SURFACE AG Negative (NEGATIVE)
[2017-11-17 20:12] LABS: HEPATITIS A IGM NEGATIVE (NEGATIVE); HEPATITIS B CORE AB NEGATIVE (NEGATIVE)
[2017-11-17 21:46] LABS: HEPATITIS C ANTIBODY REACTIVE (NEGATIVE)
[2017-11-18 07:55] VITALS: BP 101/70; PULSE 70; TEMP 98.2; O2SAT 100
[2017-11-18] MEDS: Sodium Chloride 0.9% 1,000 ML IV SCH (08:00)
[2017-11-18 08:27] LABS: ALB/GLOB RATIO 0.8 (1.0-2.1); ALBUMIN 3.4 g/dL (3.5-5.0)
[2017-11-18] MEDS: Pantoprazole 40 mg EC Tab PO SCH (08:29)
--- NOTE | 2017-11-20 00:34 | CP.PCM.DIS ---
Provider - Provider Date of Admission: 11/17/17 12:00 Attending physician: Ja Williamson MD Diagnosis - Discharge Diagnosis (1) Rib fracture Status: Acute (2) Alcohol intoxication Status: Acute (3) Ascites Status: Acute (4) Cirrhosis of liver Status: Acute Hospital Course - Lab Results Lab Results: Most Recent Lab Values WBC 8.2 K/uL (4.8-10.8) D 11/16/17 07:20 RBC 4.19 Mil/uL (3.80-5.20) 11/16/17 07:20 Hgb 13.4 g/dL (12.0-16.0) D 11/16/17 07:20 Hct 38.6 % (34.0-47.0) 11/16/17 07:20 MCV 92.0 fl (81.0-99.0) D 11/16/17 07:20 MCH 31.9 pg (27.0-31.0) H 11/16/17 07:20 MCHC 34.7 g/dL (33.0-37.0) 11/16/17 07:20 RDW 13.9 % (11.5-14.5) 11/16/17 07:20 Plt Count 98 K/uL (130-400) L D 11/16/17 07:20 MPV 8.3 fl (7.2-11.7) 11/16/17 07:20 Neut % (Auto) 82.5 % (50.0-75.0) H 11/16/17 07:20 Lymph % (Auto) 11.2 % (20.0-40.0) L 11/16/17 07:20 [place] % (Auto) 5.8 % (0.0-10.0) 11/16/17 07:20 Eos % (Auto) 0.1 % (0.0-4.0) 11/16/17 07:20 Baso % (Auto) 0.4 % (0.0-2.0) 11/16/17 07:20 Neut # (Auto) 6.8 K/uL (1.8-7.0) 11/16/17 07:20 Lymph # (Auto) 0.9 K/uL (1.0-4.3) L 11/16/17 07:20 [place] # (Auto) 0.5 K/uL (0.0-0.8) 11/16/17 07:20 Eos # (Auto) 0.0 K/uL (0.0-0.7) 11/16/17 07:20 Baso # (Auto) 0.0 K/uL (0.0-0.2) 11/16/17 07:20 PT 12.7 Seconds (9.8-13.1) 11/16/17 13:46 INR 1.1 (0.9-1.2) 11/16/17 13:46 APTT 32.1 Seconds (25.6-37.1) 11/16/17 13:46 Sodium 138 mmol/l (132-148) 11/18/17 05:30 Potassium 4.5 MMOL/L (3.6-5.0) 11/18/17 05:30 Chloride 101 mmol/L (98-107) 11/18/17 05:30 Carbon Dioxide 28 mmol/L (22-30) 11/18/17 05:30 Anion Gap 14 (10-20) 11/18/17 05:30 BUN 45 mg/dl (7-17) H 11/18/17 05:30 Creatinine 1.3 mg/dl (0.7-1.2) H 11/18/17 05:30 Est GFR ( Amer) 52 11/18/17 05:30 Est GFR (Non-Af Amer) 43 11/18/17 05:30 Random Glucose 106 mg/dL (65-105) H 11/18/17 05:30 Calcium 9.0 mg/dL (8.4-10.2) 11/18/17 05:30 Total Bilirubin 1.0 mg/dl (0.2-1.3) 11/18/17 05:30 Direct Bilirubin 0.5 mg/ml (0.0-0.4) H 11/17/17 14:37 AST 181 U/L (14-36) H D 11/18/17 05:30 ALT 154 U/L (9-52) H 11/18/17 05:30 Alkaline Phosphatase 76 U/L (38-126) 11/18/17 05:30 Total Protein 7.6 G/DL (6.3-8.2) 11/18/17 05:30 Albumin 3.4 g/dL (3.5-5.0) L 11/18/17 05:30 Globulin 4.3 gm/dL (2.2-3.9) H 11/18/17 05:30 Albumin/Globulin Ratio 0.8 (1.0-2.1) L 11/18/17 05:30 Urine Opiates Screen Negative (NEGATIVE) 11/16/17 11:50 Urine Methadone Screen Negative (NEGATIVE) 11/16/17 11:50 Ur Barbiturates Screen Negative (NEGATIVE) 11/16/17 11:50 Ur Phencyclidine Scrn Negative (NEGATIVE) 11/16/17 11:50 Ur Amphetamines Screen Negative (NEGATIVE) 11/16/17 11:50 U Benzodiazepines Scrn Negative (NEGATIVE) 11/16/17 11:50 U Oth Cocaine Metabols Negative (NEGATIVE) 11/16/17 11:50 U Cannabinoids Screen Negative (NEGATIVE) 11/16/17 11:50 Alcohol, Quantitative 111 mg/dl (0-10) H 11/16/17 07:20 Hepatitis A IgM Ab Negative (NEGATIVE) 11/17/17 14:37 Hep Bs Antigen Negative (NEGATIVE) 11/17/17 14:37 Hep B Core IgM Ab Negative (NEGATIVE) 11/17/17 14:37 Hepatitis C Antibody Reactive (NEGATIVE) 11/17/17 14:37 HIV 1&2 Ag/Ab, 4th Gen Nonreactive (Nonreactive) 11/17/17 14:37 - Hospital Course Hospital Course: Thi sis a 52 y/o female admitted for alcohol intoxication and near syncope. Discharge Exam - Head Exam Head Exam: NORMAL INSPECTION Discharge Plan - Follow Up Plan Condition: FAIR Disposition: HOME/ ROUTINE Instructions: Rib Fracture (DC), Alcohol Withdrawal (DC)
--- NOTE | 2017-11-20 08:55 | CON ---
DATE: 11/17/2017 REFERRING PHYSICIAN: . REASON FOR CONSULTATION: Alcoholic liver disease. HISTORY OF PRESENT ILLNESS: This is a 52-year-old female well known to my office for sometime who has history of ETOH abuse, alcoholic liver disease, hep C positive. The patient had relapse with drinking status post fall. The patient at this point, has nausea, vomiting and has some pain in the ribs, otherwise, lying comfortably in bed, in no apparent distress. PAST MEDICAL HISTORY: As above. PAST SURGICAL HISTORY: As above. MEDICATIONS: Have been reviewed. REVIEW OF SYSTEMS: All other systems have been reviewed and negative apart from the HPI. PHYSICAL EXAMINATION: VITAL SIGNS: Here in the hospital are grossly unremarkable. GENERAL: A pleasant middle age female, lying in bed comfortably, in no apparent distress. HEENT: Head is normocephalic and atraumatic. Eyes; pupils are equally reactive to light bilaterally. No conjunctival pallor or icterus. NECK: Supple. Normal range of motion. No lymphadenopathy appreciated. LUNGS: Coarse breath sounds bilaterally. HEART: S1 and S2, regular rate and rhythm. No murmurs appreciated. ABDOMEN: Soft and nontender. Bowel sounds is present. No rebound. No guarding. RECTAL: Deferred. EXTREMITIES: Pulses present bilaterally. SKIN: Warm, dry and intact. NEUROLOGIC: A and O x3. LABORATORY DATA: All labs and radiology have been reviewed. WBC 8.3, hemoglobin 13.4, hematocrit is stable, and platelet count is total bilirubin is 1.4. Alcohol level is . ASSESSMENT AND PLAN: This is a 52-year-old female with alcoholic liver disease. I recommend of alcohol as soon as possible. From GI standpoint, discharge planning . Thank you for the consult. Colt Glez MD/ PhD cc: 1:30
== END 2017-11-18 14:07 | disposition home or self-care (01) | DRG 897 ==
LOC: H.ER 06:50 → H.ERHOLD 08:38 → H.TEL 18:26 → OBSVTOIN 11-17 12:00 → H.MEDSURG1 11-17 19:00
PROVIDERS: ADMIT Family Medicine; ATTEND Family Medicine
PROC: 3E0234Z Introduction of Serum, Toxoid and Vaccine into Muscle, Percutaneous Approach (ICD-10-PCS; principal; 2017-11-17)
DX: F10.229 Alcohol dependence with intoxication, unspecified (principal); S22.39XA Fracture of one rib, unspecified side, initial encounter for closed fracture; F10.239 Alcohol dependence with withdrawal, unspecified; K70.31 Alcoholic cirrhosis of liver with ascites; E86.0 Dehydration; F11.11 Opioid abuse, in remission; B19.20 Unspecified viral hepatitis C without hepatic coma; Y90.5 Blood alcohol level of 100-119 mg/100 ml; Z23 Encounter for immunization; W19.XXXA Unspecified fall, initial encounter; Z91.19 Patient's noncompliance with other medical treatment and regimen; Z91.81 History of falling; Z87.891 Personal history of nicotine dependence; Y92.002 Bathroom of unspecified non-institutional (private) residence as the place of occurrence of the external cause